=== PATIENT | female | born 1965 | race Caucasian/White ===

== ENCOUNTER → 2017-12-27 | Outpatient (CLI) | payer BC ==
[2015-02-21 06:04] VITALS: BP 147/92
[~2017-12-27] MED LIST: DICY20TA3 PO; ONDA4TAB12 PO
--- NOTE | 2017-12-27 09:53 | RAD ---
Chest, 2 views, 12/27/2017: History: Cough Comparison is made to a study from 08/28/2016. The heart size and pulmonary vascularity are normal. No pulmonary infiltrates are seen. There is an unchanged linear opacity projected over the anterior aspect of the heart compatible with a scar. No pleural fluid is evident. There are mild scattered spurs in the spine. IMPRESSION: No acute cardiopulmonary abnormality is detected.
== END | disposition home or self-care (01) ==
LOC: PMG 07:39
PROVIDERS: ATTEND Physician Assistant Medical
DX: R91.8 Other nonspecific abnormal finding of lung field (principal)
CPT/HCPCS: 71046

== ENCOUNTER → 2018-01-10 | Outpatient (CLI) | payer BC ==
[2015-02-21 06:04] VITALS: BP 147/92
--- NOTE | 2018-01-10 11:04 | RAD ---
DATE: January 10, 2018 EXAM: DIGITAL DIAGNOSTIC BILATERAL, BREAST RIGHT HISTORY: Right breast lump for 6 months. COMPARISON: October 17, 2015 This study was interpreted with the benefit of Computerized Aided Detection (CAD). DIAGNOSTIC BILATERAL MAMMOGRAPHIC FINDINGS: The breast parenchyma is heterogeneously dense. There are no dominant suspicious masses, suspicious microcalcifications or evidence of architectural distortion. A metallic BB is placed on the upper medial aspect of the right breast to kieran the palpable lump as indicated by the patient. No focal mammographic abnormality is seen here. A biopsy clip is present on the left side. RIGHT BREAST SONOGRAPHY: High-resolution sonography of the upper right breast from the 11:00 to 2:00 position was performed in the area of the palpable lump as indicated by the patient. No focal sonographic abnormality is seen. IMPRESSION: No mammographic indicators for malignancy. No focal mammographic or sonographic abnormality is seen in the area of the palpable right breast lump. Therefore, with regard to any palpable breast lump, follow-up should be clinical. BI-RADS CATEGORY: 1 NEGATIVE RECOMMENDED FOLLOW-UP: 12M 12 MONTH FOLLOW-UP PQRS compliance statement: Patient information was entered into a reminder system with a target due date January 11, 2019 for the next mammogram. Mammography is a sensitive method for finding small breast cancers, but it does not detect them all and is not a substitute for careful clinical examination. A negative mammogram does not negate a clinically suspicious finding and should not result in delay in biopsying a clinically suspicious abnormality. "Our facility is accredited by the [employer] Mammography Program." The patient's breast density may affect the ability of mammography to detect breast cancer. There are 4 categories of breast density, A, B, C and D. Breast density A means that most of the breast tissue is replaced with adipose tissue and therefore is not dense. Breast density B means that the breast tissue is mildly dense and scattered. Breast density C means that the breast tissue is heterogeneously dense. Breast density D means that the breast tissue is very dense. Breast densities especially C and D may decrease the sensitivity of mammography to detect breast cancer. Therefore, the patient may benefit from 3-D breast mammography (3D breast tomography) as a part of their screening mammogram. Insurance may or may not pay for this additional imaging. The patient's breast density based on today's mammogram is category C.
== END | disposition home or self-care (01) ==
LOC: MAMMO 09:43
PROVIDERS: ATTEND Physician Assistant Medical
DX: N63.10 Unspecified lump in the right breast, unspecified quadrant (principal); F17.200 Nicotine dependence, unspecified, uncomplicated
CPT/HCPCS: 76641; 77066

== ENCOUNTER → 2018-01-30 | Day surgery (SDC) | payer BC ==
[~2018-01-30] MED LIST changes: +ALPR1TAB6 PO; +AMLO5TAB2 PO; +ATOR10TA60 PO; +ATROPINE 0.5 MG/5 ML DISP.SYRIN. IV PRN; +CHOL500016 PO; +CYCL-331 PO; +DOCU-109 PO; +DULO60CA6 PO; +ESOM20CA PO; +FLUT9.9S NS; +IV RINGERS SOLUTION,LACTATED 1,000 ML BAG. IV ONE; +IV RINGERS SOLUTION,LACTATED 1,000 ML IV SCH; +LIDOCAINE 2% PF Vial for OR 5 ML VIAL. ONE; +LOSA100T6 PO; +MELO15TA23 PO; +NALOXONE 0.4 MG/ML VIAL. IV PRN; +ONDANSETRON PF 4 MG/2 ML VIAL. IV PRN; +POTA10TA5 PO; +PROPOFOL 40 ML IV ONE; +QUET50TA5 PO; +TRAM50TA PO
[2018-01-30 14:22] VITALS: BP 119/87
== END | disposition home or self-care (01) ==
LOC: SURG 11:49
PROVIDERS: ATTEND Internal Medicine Gastroenterology
DX: Z09 Encounter for follow-up examination after completed treatment for conditions other than malignant neoplasm (principal); Z86.010 Personal history of colon polyps; K63.5 Polyp of colon; K62.1 Rectal polyp; K21.9 Gastro-esophageal reflux disease without esophagitis; I10 Essential (primary) hypertension; J44.9 Chronic obstructive pulmonary disease, unspecified; F32.9 Major depressive disorder, single episode, unspecified; F41.9 Anxiety disorder, unspecified; M79.7 Fibromyalgia; Z98.890 Other specified postprocedural states; Z88.0 Allergy status to penicillin; Z88.8 Allergy status to other drugs, medicaments and biological substances; Z88.1 Allergy status to other antibiotic agents; Z79.899 Other long term (current) drug therapy
CPT/HCPCS: 43239; 45380; 45385; J2704; J3010; J7120; J2001

== ENCOUNTER → 2018-07-28 | Outpatient (CLI) | payer BC ==
[2018-01-30 14:22] VITALS: BP 119/87
[~2018-07-28] MED LIST changes: -AMLO5TAB2 PO; +AMLO5TAB7 PO; -ATROPINE 0.5 MG/5 ML DISP.SYRIN. IV PRN; -IV RINGERS SOLUTION,LACTATED 1,000 ML BAG. IV ONE; -IV RINGERS SOLUTION,LACTATED 1,000 ML IV SCH; -LIDOCAINE 2% PF Vial for OR 5 ML VIAL. ONE; -LOSA100T6 PO; +LOSA100T7 PO; -NALOXONE 0.4 MG/ML VIAL. IV PRN; -ONDANSETRON PF 4 MG/2 ML VIAL. IV PRN; -PROPOFOL 40 ML IV ONE
--- NOTE | 2018-07-28 08:39 | RAD ---
Chest, 2 views, 07/28/2018: HISTORY: Cough Comparison is made to a study from 12/27/2017. The heart size and pulmonary vascularity are normal. A linear opacity projected over the right middle lobe is unchanged and is compatible scarring. No pulmonary consolidation is seen. There is no evidence of pleural fluid. Mild spurring is present in the spine. IMPRESSION: No acute cardiopulmonary abnormality is detected. Electronically signed by: Fortunato Sauceda MD (07/28/2018 8:35 AM) [facility]
== END | disposition home or self-care (01) ==
LOC: DXRAD 07:57
PROVIDERS: ATTEND Physician Assistant Medical
DX: R05 Cough (principal); R91.8 Other nonspecific abnormal finding of lung field; I10 Essential (primary) hypertension; E78.00 Pure hypercholesterolemia, unspecified; J44.9 Chronic obstructive pulmonary disease, unspecified; K21.9 Gastro-esophageal reflux disease without esophagitis; Z86.010 Personal history of colon polyps; Z88.0 Allergy status to penicillin; Z88.1 Allergy status to other antibiotic agents; Z88.8 Allergy status to other drugs, medicaments and biological substances
CPT/HCPCS: 71046

== ENCOUNTER → 2019-08-28 | Outpatient (CLI) | payer BC ==
[2018-01-30 14:22] VITALS: BP 119/87
[~2019-08-28] MED LIST changes: +AMLO5TAB10 PO; -AMLO5TAB7 PO; +LOSA100T14 PO; -LOSA100T7 PO
--- NOTE | 2019-08-28 15:00 | RAD ---
EXAM: CHEST 2 VIEWS. HISTORY: Shortness of breath, cough. COMPARISON: 07/28/2018. FINDINGS: Frontal and lateral views of the chest are obtained. Hyperinflation suggests with chronic obstructive pulmonary disease. There are no confluent infiltrates. There is no pneumothorax or pleural effusion. The heart is not enlarged. There are atherosclerotic calcifications of the aorta. IMPRESSION: 1. Correlate for chronic obstructive pulmonary disease. No confluent infiltrates. Electronically signed by: Ab Sparrow MD (08/28/2019 2:57 PM) [facility] [place]
== END | disposition home or self-care (01) ==
LOC: PMG 08:18
PROVIDERS: ATTEND Physician Assistant Medical
DX: I70.0 Atherosclerosis of aorta (principal)
CPT/HCPCS: 71046

== ENCOUNTER → 2019-09-07 | Outpatient (CLI) | payer BC ==
[2018-01-30 14:22] VITALS: BP 119/87
--- NOTE | 2019-09-07 15:52 | RAD ---
EXAM: Chest, 2 views. HISTORY: Cough. COMPARISON: 08/28/2019 FINDINGS: 2 views of the chest are obtained. There is no infiltrate, pleural effusion or pneumothorax. The heart is normal in size. There is hyperinflation due to inspiratory effort or emphysema. There is linear scarring or atelectasis within the right middle lobe. IMPRESSION: No acute pulmonary finding. Electronically signed by: Candy Cano MD (09/07/2019 3:49 PM) [place] [id number]
== END | disposition home or self-care (01) ==
LOC: DXRAD 15:12
PROVIDERS: ATTEND Registered Nurse
DX: R79.81 Abnormal blood-gas level (principal); R05 Cough
CPT/HCPCS: 71046

== ENCOUNTER → 2019-09-21 | Outpatient (CLI) | payer BC ==
[2018-01-30 14:22] VITALS: BP 119/87
--- NOTE | 2019-09-21 14:34 | RAD ---
EXAM: Left ankle, 2 views. HISTORY: Pain. COMPARISON: None. FINDINGS: 2 views of the left ankle are obtained. There is no fracture, dislocation or subluxation. No osteochondral lesion is seen. IMPRESSION: No acute osseous finding. Electronically signed by: Candy Cano MD (09/21/2019 2:31 PM) [facility]
== END | disposition home or self-care (01) ==
LOC: PMG 10:50
PROVIDERS: ATTEND Registered Nurse
DX: M25.572 Pain in left ankle and joints of left foot (principal)
CPT/HCPCS: 73600

== ENCOUNTER 2019-10-19 15:44 | Inpatient (IN) | payer BC ==
[~2019-10-19] VITALS: Ht 160 cm; Wt 65.9 kg
[2019-10-19 16:10] VITALS: BP 116/64
[2019-10-19] MEDS ORDERED: ACETAMINOPHEN 325 MG TABLET PO PRN (16:15)
[2019-10-19] MEDS ORDERED: ONDANSETRON PF 4 MG/2 ML VIAL. IV PRN (16:15)
[2019-10-19 16:24] LABS: BASO % 0 % (0-3); EOS # 0.1 x10^3/uL (0.0-0.7); EOS % 1 % (0-3); HEMATOCRIT 35.8 % (36.0-47.0); LYMPH # 1.4 x10^3/uL (1.0-4.8); LYMPH % 12 % (24-48); MEAN CORPUSCULAR HEMOGLOBIN 31 pg (25-35); MEAN CORPUSCULAR HGB CONC 34 g/dL (31-37); MEAN CORPUSCULAR VOLUME 94 fL (79-100); MONO # 1.3 x10^3/uL (0.0-1.1); MONO % 11 % (0-9); NEUT # 9.2 x10^3uL (1.8-7.7); NEUT % 76 % (31-73); PLATELET COUNT 216 x10^3/uL (140-400); RED BLOOD COUNT 3.83 x10^6/uL (3.50-5.40); RED CELL DISTRIBUTION WIDTH 13.4 % (11.5-14.5); WHITE BLOOD COUNT 12.1 x10^3/uL (4.0-11.0)
[2019-10-19] MEDS: IPRATRPIUM/ALBUTEROL 0.5/2.5MG 3 ML NEBU. NEB SCH ×2 (16:26→20:49)
[2019-10-19] MEDS: IV NORMAL SALINE 1,000ML 1,000 ML IV SCH (16:28)
[2019-10-19] MEDS: methylPREDNISolone SOD SUCC PF 125 MG/2 ML VIAL. IV SCH ×2 (16:28→21:11)
[2019-10-19] MEDS ORDERED: LURA40TA PO (16:41)
[2019-10-19] MEDS ORDERED: DEXT10TA23 PO (16:41)
[2019-10-19] MEDS ORDERED: ONDA4TAB7 PO (16:41)
[2019-10-19] MEDS ORDERED: VALS160T3 PO (16:41)
[2019-10-19 16:43] LABS: ALBUMIN 2.9 g/dL (3.4-5.0); ALBUMIN/GLOBULIN RATIO 0.6 (1.0-1.7); CALCIUM 8.5 mg/dL (8.5-10.1); CREATININE 0.7 mg/dL (0.6-1.0); GFR 87.2; POTASSIUM 3.3 mmol/L (3.5-5.1); TOTAL BILIRUBIN 0.2 mg/dL (0.2-1.0); TOTAL PROTEIN 7.4 g/dL (6.4-8.2)
[2019-10-19] MEDS ORDERED: POTASSIUM CHLORIDE 20 MEQ TABLET.ER. PO ONE (17:00)
[2019-10-19] MEDS ORDERED: HYDROcodone/CHLORPHEN POLIS 5 ML SUS.ER.12H PO PRN (17:00)
[2019-10-19] MEDS: NICOTINE 21MG PATCH. TD SCH (17:05)
[2019-10-19 17:43] VITALS: BP 96/51
[2019-10-19] MEDS ORDERED: IOHEXOL 350 MG/ML 100 ML VIAL. IV ONE (17:45)
[2019-10-19] MEDS ORDERED: diphenhydrAMINE 50 MG/ML VIAL IVP PRN (18:30)
[2019-10-19 19:00] VITALS: BP 92/55
[2019-10-19] MEDS ORDERED: AZITHROMYCIN 500 MG in IV NORMAL SALINE 250ML 250 ML IV SCH (19:00)
[2019-10-19] MEDS ORDERED: ONDANSETRON ODT 4 MG TAB.RAPDIS PO PRN (19:30)
--- NOTE | 2019-10-19 19:52 | RAD ---
Exam: CT of chest with contrast INDICATION: Shortness of breath TECHNIQUE: Sequential axial images through the chest obtained following the administration of 75 mL of Omni 350 IV contrast. Sagittal and coronal reformatted images were reconstructed from the axial data and reviewed. 3-D reformatted images were reconstructed from the axial data and reviewed. Comparisons: None FINDINGS: Visualized portions of the thyroid are unremarkable. No enlarged mediastinal lymph nodes are identified. Heart size is normal. Trace pericardial fluid. Thoracic aorta has a normal course and caliber. Pulmonary artery is not enlarged. No pulmonary embolus identified within the main, lobar or segmental pulmonary arteries. Mild bronchial wall thickening noted predominantly within the lower lobes. Centrilobular emphysematous change noted at the upper lungs. Patchy airspace disease noted within the right upper lobe. 4 mm nodule left lower lobe series 3 image 55. No pleural effusion or thickening. Visualized upper abdomen is unremarkable. No suspicious osseous lesions or acute fractures. IMPRESSION: 1. No pulmonary embolus identified within the main, lobar or segmental pulmonary arteries. 2. Few patchy areas of groundglass opacity noted within the right upper lobe, may be infectious or inflammatory in etiology. 3. A 4 mm nodule in the left lower lobe. In a low-risk patient no further follow-up imaging is recommended. In a high-risk patient and optional one-year follow-up CT can BE performed. Exposure: One or more of the following in the visualized dose reduction techniques were utilized for this examination: 1. Automated exposure control 2. Adjustment of the MA and/or KV according to patient size 3. Use of iterative of reconstructive technique Electronically signed by: Patrizia Blancas MD (10/19/2019 7:49 PM) [facility] [id number]
--- NOTE | 2019-10-19 19:57 | RAD ---
Exam: CT maxillofacial without contrast INDICATION: Chronic congestion, pain TECHNIQUE: Sequential axial images through the maxillofacial obtained without IV contrast. Sagittal and coronal reformatted images were reconstructed from the axial data and reviewed. Comparisons: None FINDINGS: Visualized intracranial structures are unremarkable. Globes and intraorbital contents are normal. No acute or healed fractures. Near Complete opacification of the right maxillary sinus. No reactive osteogenesis identified. Mild mucosal thickening of the left maxillary sinus. Dental amalgam artifact mildly limits the evaluation. The patient is partially edentulous. IMPRESSION: 1. Complete opacification of the right maxillary sinus. Mild mucosal thickening of the left maxillary sinus. 2. No acute fractures seen. Exposure: One or more of the following in the visualized dose reduction techniques were utilized for this examination: 1. Automated exposure control 2. Adjustment of the MA and/or KV according to patient size 3. Use of iterative of reconstructive technique Electronically signed by: Patrizia Blancas MD (10/19/2019 7:53 PM) [facility]
[2019-10-19 20:47] LABS: BACTERIA,URINE 0 /HPF (0-FEW); BILIRUBIN,URINE NEG (NEG); CLARITY,URINE CLEAR; COLOR,URINE COLORLESS; GLUCOSE,URINE NEG (NEG); NITRITE,URINE NEG (NEG); RBC,URINE OCC /HPF (0-2); SQUAMOUS EPITHELIAL CELL,UR OCC /LPF; UROBILINOGEN,URINE 0.2 mg/dL (0.2 mg/dL); WBC,URINE OCC /HPF (0-4)
[2019-10-19] MEDS: LURASIDONE 40 MG TABLET. PO SCH (21:00)
[2019-10-19] MEDS: ALPRAZolam 0.5 MG TABLET PO SCH (21:11)
[2019-10-19] MEDS: LACTOBACILLUS RHAMNOSUS GG 1 CAPSULE. PO SCH (21:11)
[2019-10-19] MEDS: CYCLOBENZAPRINE 10 MG TABLET. PO SCH (21:12)
[2019-10-19] MEDS: PANTOPRAZOLE 40 MG TABLET. PO SCH (21:12)
[2019-10-19] MEDS: MELOXICAM 15 MG TABLET. PO SCH (21:12)
[2019-10-19] MEDS: BENZONATATE 100 MG CAPSULE. PO SCH (21:12)
[2019-10-19] MEDS: ATORVASTATIN CALCIUM 10 MG TABLET. PO SCH (21:12)
[2019-10-19 23:00] VITALS: BP 95/60
[2019-10-20] MEDS: IPRATRPIUM/ALBUTEROL 0.5/2.5MG 3 ML NEBU. NEB SCH ×4 (05:17→20:41)
[2019-10-20] MEDS: methylPREDNISolone SOD SUCC PF 125 MG/2 ML VIAL. IV SCH ×3 (05:30→21:11)
[2019-10-20] MEDS: IV NORMAL SALINE 1,000ML 1,000 ML IV SCH ×2 (05:30→17:01)
[2019-10-20 07:42] VITALS: BP 99/63
[2019-10-20] MEDS ORDERED: PNEUMOC CONJ VACC 23-VALENT 0.5 ML VIAL. VAX IM ONE (08:00)
[2019-10-20] MEDS: POTASSIUM CHLORIDE 10 MEQ TABLET.ER. PO SCH (08:06)
[2019-10-20] MEDS: LACTOBACILLUS RHAMNOSUS GG 1 CAPSULE. PO SCH ×2 (08:07→21:11)
[2019-10-20] MEDS: DULoxetine HCL 60 MG CAPSULE.DR PO SCH (08:07)
[2019-10-20] MEDS: BENZONATATE 100 MG CAPSULE. PO SCH ×3 (08:07→21:10)
[2019-10-20] MEDS: PANTOPRAZOLE 40 MG TABLET. PO SCH ×2 (08:07→21:11)
[2019-10-20] MEDS: NICOTINE 21MG PATCH. TD SCH (08:08)
[2019-10-20] MEDS: FLUTICASONE 50MCG/NASAL SPRAY 16GM BOTTLE. NS SCH (08:09)
[2019-10-20] MEDS: amLODIPine BESYLATE 10 MG TABLET PO SCH (09:00)
[2019-10-20] MEDS ORDERED: NON FORMULARY ITEM (Valsartan (Diovan) 1 TAB) PO SCH (09:00)
[2019-10-20] MEDS: LOSARTAN 50 MG TABLET. PO SCH (09:00)
[2019-10-20 11:00] VITALS: BP 106/65
[2019-10-20] MEDS ORDERED: HYDROcodone/APAP 5/325MG 1 TAB TABLET PO PRN (12:00)
--- NOTE | 2019-10-20 12:02 | HP ---
ADMIT DATE: 10/19/2019 HISTORY OF PRESENT ILLNESS: The patient is a 53-year-old female patient who was admitted directly from her primary care physician on account of shortness of breath, cough, headache, fever for almost 8 days. When she blows her nose she has dark yellow discharge. She denied any chest pain, but did complain of abdominal back pain due to recurrent bouts of cough. She has been consistently sick throughout the month of August and September and was treated with 3 courses of antibiotics including doxycycline, clindamycin and Z-RAZ and she did improve for about a week and then all the symptoms started again; and therefore, she was admitted directly for further evaluation and treatment. PAST MEDICAL HISTORY: Significant for COPD, hypertension, hyperlipidemia, history of cerebrovascular accident about 10 years ago. Did also has a sleep study, would confirm that she has obstructive sleep apnea; however, she has never had any CPAP or BiPAP machine at home. PAST SURGICAL HISTORY: Significant for , tonsillectomy, bronchoscopy, esophagogastroduodenoscopy and colonoscopy. ALLERGIES: SHE IS ALLERGIC TO PENICILLIN, CEPHALEXIN, CIPROFLOXACIN WELL STATIN. MEDICATIONS: She is currently on following medications: She is on cyclobenzaprine 10 mg at bedtime, atorvastatin calcium 10 mg at bedtime, amlodipine 10 mg daily, valsartan 160 mg daily, meloxicam 15 mg at bedtime, duloxetine 60 mg once a day, Latuda 40 mg at bedtime. She is on Adderall 10 mg daily, alprazolam 1 mg at bedtime. She is on potassium chloride 10 mEq once a day. She is on Flonase 2 sprays to each nostril once a day, ondansetron 4 mg every 6 hours, and Nexium capsule 20 mg twice a day. FAMILY HISTORY: She has one full brother, 3 half-sisters and one half-brother. Her father is still alive at the age of 78 with Alzheimer's disease. Her mother at the age of 64 because of heart attack. SOCIAL HISTORY: She is , has one daughter. She smokes a pack a day, does not drink alcohol or use any recreational drugs. She works at [employer]. REVIEW OF SYSTEMS: The patient denied any blurring of vision, cataract, glaucoma or macular degeneration. Denied any earache, tinnitus or sensorineural deafness. Denied any nosebleeds, but did complain of stuffy nose, postnasal drip. Denied any sore throat, sore tongue, toothache, hoarseness of voice or difficulty swallowing. Denied any nausea, vomiting or diarrhea, but did complain of constipation. Denied any hematemesis, melena or hematochezia. Denied any dysuria, frequency or hematuria. Denied any chest pain. Did complain of shortness of breath, cough with initially dark yellow and subsequently becomes dry. PHYSICAL EXAMINATION: GENERAL: On arrival to the hospital yesterday, she was febrile with temperature of 100.8. VITAL SIGNS: Her heart rate was 94, blood pressure was 116/64, respiratory rate was 16, and oxygen saturation was 98% on 2 liters of oxygen. HEAD, EYES, EARS, NOSE AND THROAT: Showed normocephalic, atraumatic. NECK: Supple. HEART: Showed normal first and second heart sounds. No gallop or murmur. CHEST: Showed central trachea, equally reduced expansion, reduced air entry, vesicular sounds with expiratory wheezes. I could not appreciate any crepitation. ABDOMEN: Distended, soft, nontender. NEUROLOGIC: She is awake, alert, responding appropriately. All cranial nerves intact. EXTREMITIES: She moves extremities without difficulty. She ambulates without assistance or assistive devices. LABORATORY DATA: On admission showed a white cell count 12,100, hemoglobin 12, hematocrit 36, MCV 94 and platelet count of 216,000 with normal manual differential. Her chemistry showed a serum sodium 137, potassium 3.3, chloride 99, bicarbonate 27, anion gap of 11, BUN 7, creatinine 0.7, estimated GFR was 87 mL per minute. Her glucose was 98, lactic acid is only 1, calcium was 8.5, magnesium 2. Total bilirubin, AST, ALT were normal. Alkaline phosphatase slightly elevated. Her total protein was 7.4, albumin 2.9. Her D-dimer was slightly elevated at 2.15. Urinalysis was essentially unremarkable. She did have a CT maxillofacial without contrast, which showed that she has complete opacification of the right maxillary sinus. Mild mucosal thickening of the left maxillary sinus. No acute fracture seen. CT angio of the chest showed that there is no pulmonary embolus identified within the main lobar or segmental pulmonary arteries, few patchy areas of ground glass opacity noted within the right upper lobe, may be infectious, inflammatory in etiology. A 4 mm nodule in the left lower lobe. In a low risk patient, no further followup imaging is recommended. In a high risk patient, an optional 1-year followup CT can be performed. ASSESSMENT AND PLAN: In summary, this is a 53-year-old female patient who was admitted on account of chronic obstructive pulmonary disease exacerbation. We will continue with IV antibiotic in the form of levofloxacin as well as azithromycin and steroids together with nebulized treatment as well as Mucinex and we will follow her closely and decide on further management accordingly. SOMMER GUO MD DR: SMITH/benjie JOB#: [id number] / [id number]
[2019-10-20] MEDS: MEROPENEM 1 GM in IV NORMAL SALINE 100ML 100 ML IV SCH ×2 (13:21→22:25)
[2019-10-20 15:00] VITALS: BP 112/68
[2019-10-20 16:19] VITALS: BP 111/71
--- NOTE | 2019-10-20 20:12 | PN ---
DATE: 10/20/2019 SUBJECTIVE: The patient is resting slightly propped up in bed, in no apparent respiratory distress; however, she continued to have cough, which is mostly dry. PHYSICAL EXAMINATION: GENERAL: When I examined her, she looked slightly tachypneic, but there is no pallor, jaundice, cyanosis or thyromegaly. No jugular venous distention. No limb edema. VITAL SIGNS: Her heart rate was 88, blood pressure was 92/55, temperature was 97.7, respiratory rate 20 and oxygen saturation was 96% on 2 liters of oxygen. HEAD, EYES, EARS, NOSE AND THROAT: Showed normocephalic, atraumatic. NECK: Supple. HEART: Showed normal first and second heart sounds with no gallop or murmur. CHEST: Shows central trachea, equally reduced expansion, reduced air entry with vesicular breath sounds and markedly prolonged expiratory phase with wheezing. I could not appreciate any crepitation. ABDOMEN: Distended, soft, nontender. NEUROLOGICAL: She was awake, alert, responding appropriately. All cranial nerves intact. She moves extremities without difficulty. LABORATORY DATA: She has no lab work from this morning. PLAN: My plan is to continue with nebulized albuterol and Atrovent. Continue with Solu-Medrol, IV antibiotic. I probably will discontinue Zithromax and add meropenem to expand her coverage. SOMMER GUO MD DR: SMITH/benjie JOB#: [id number] / [id number]
[2019-10-20 20:53] VITALS: BP 103/67
[2019-10-20] MEDS: CYCLOBENZAPRINE 10 MG TABLET. PO SCH (21:11)
[2019-10-20] MEDS: LURASIDONE 40 MG TABLET. PO SCH (21:11)
[2019-10-20] MEDS: ALPRAZolam 0.5 MG TABLET PO SCH (21:11)
[2019-10-20] MEDS: ATORVASTATIN CALCIUM 10 MG TABLET. PO SCH (21:11)
[2019-10-20] MEDS: MELOXICAM 15 MG TABLET. PO SCH (21:11)
[2019-10-20 23:18] VITALS: BP 120/79
[2019-10-21] MEDS: IV NORMAL SALINE 1,000ML 1,000 ML IV SCH ×3 (03:03→18:11)
[2019-10-21] MEDS: MEROPENEM 1 GM in IV NORMAL SALINE 100ML 100 ML IV SCH ×3 (04:33→22:19)
[2019-10-21 05:48] VITALS: BP 137/85
[2019-10-21] MEDS: methylPREDNISolone SOD SUCC PF 125 MG/2 ML VIAL. IV SCH ×3 (05:53→20:54)
[2019-10-21 06:42] LABS: HEMATOCRIT 33.3 % (36.0-47.0); RED BLOOD COUNT 3.56 x10^6/uL (3.50-5.40); RED CELL DISTRIBUTION WIDTH 13.5 % (11.5-14.5); WHITE BLOOD COUNT 16.5 x10^3/uL (4.0-11.0)
[2019-10-21 06:56] LABS: ALBUMIN 2.3 g/dL (3.4-5.0); ALBUMIN/GLOBULIN RATIO 0.6 (1.0-1.7); CALCIUM 8.3 mg/dL (8.5-10.1); CREATININE 0.7 mg/dL (0.6-1.0); GFR 87.2; POTASSIUM 4.6 mmol/L (3.5-5.1); TOTAL BILIRUBIN 0.1 mg/dL (0.2-1.0); TOTAL PROTEIN 6.2 g/dL (6.4-8.2)
[2019-10-21] MEDS ORDERED: FLU VAX QS 2019-20 (36MOS+)/PF 0.5 ML SYRINGE. VAX IM ONE (08:00)
[2019-10-21] MEDS: LACTOBACILLUS RHAMNOSUS GG 1 CAPSULE. PO SCH ×2 (08:28→20:55)
[2019-10-21] MEDS: PANTOPRAZOLE 40 MG TABLET. PO SCH ×2 (08:28→20:56)
[2019-10-21] MEDS: DULoxetine HCL 60 MG CAPSULE.DR PO SCH (08:28)
[2019-10-21] MEDS: amLODIPine BESYLATE 10 MG TABLET PO SCH (08:29)
[2019-10-21] MEDS: BENZONATATE 100 MG CAPSULE. PO SCH ×3 (08:29→20:55)
[2019-10-21] MEDS: LOSARTAN 50 MG TABLET. PO SCH (08:29)
[2019-10-21] MEDS: POTASSIUM CHLORIDE 10 MEQ TABLET.ER. PO SCH (08:30)
[2019-10-21] MEDS: NICOTINE 21MG PATCH. TD SCH (08:30)
[2019-10-21] MEDS: IPRATRPIUM/ALBUTEROL 0.5/2.5MG 3 ML NEBU. NEB SCH ×4 (09:17→21:16)
[2019-10-21] MEDS: FLUTICASONE 50MCG/NASAL SPRAY 16GM BOTTLE. NS SCH (09:31)
[2019-10-21 11:00] VITALS: BP 132/79
[2019-10-21 15:48] VITALS: BP 151/82
[2019-10-21 15:52] VITALS: BP 135/83
[2019-10-21 18:32] LABS: BGAS PH 7.34 (7.35-7.45); DELTA BASE BGAS -2.2 mmol/L (0-3)
[2019-10-21 20:00] VITALS: BP 142/81
[2019-10-21] MEDS: CYCLOBENZAPRINE 10 MG TABLET. PO SCH (20:55)
[2019-10-21] MEDS: ALPRAZolam 0.5 MG TABLET PO SCH (20:56)
[2019-10-21] MEDS: MONTELUKAST 10 MG TABLET. PO SCH (20:56)
[2019-10-21] MEDS: ATORVASTATIN CALCIUM 10 MG TABLET. PO SCH (20:56)
[2019-10-21] MEDS: LURASIDONE 40 MG TABLET. PO SCH (22:19)
[2019-10-21 22:29] VITALS: BP 144/79
--- NOTE | 2019-10-22 00:56 | PN ---
DATE: 10/21/2019 SUBJECTIVE: The patient is resting slightly propped up in bed, in no apparent distress. She continues to have cough, which is mostly dry, continues to have chest tightness and diffuse wheezing, although she seemed to be more comfortable than yesterday. PHYSICAL EXAMINATION: GENERAL: When I examined her, she was somewhat pale. No jaundice, cyanosis, or thyromegaly. No jugular venous distention. No limb edema. VITAL SIGNS: Her heart rate was 91, blood pressure was 132/79, temperature was 97.7, respiratory rate 20, and oxygen saturation was 95% on 2 liters of oxygen. HEAD, EYES, EARS, NOSE, AND THROAT: Showed normocephalic and atraumatic. NECK: Supple. HEART: Showed normal first and second heart sounds with no gallop, rub, or murmur. CHEST: Shows central trachea, equally reduced expansion and reduced air entry, vesicular sounds with diffuse bilateral rhonchi and audible wheezes. No crepitation. ABDOMEN: Distended, soft, and nontender. NEUROLOGIC: She was awake, alert, and responding appropriately. All cranial nerves are intact. She moves extremities without difficulty. She ambulates without assistance or assistive devices. Her intake over the last 24 hours was 3930. No output was recorded. LABORATORY DATA: Her white cell count was 16,500, hemoglobin 11, hematocrit 33, MCV 94, and platelet count 235,000. Her chemistry showed a serum sodium of 138, potassium 4.6, chloride 106, bicarbonate 26, anion gap of 6, BUN 12, and creatinine 0.7. Estimated GFR was 87 mL per minute. Her glucose was 110 and calcium was 8.3. Total bilirubin, AST, ALT are normal. Alkaline phosphatase is slightly elevated. Total protein is 6.2 and albumin 2.3. Her D-dimer was high at 2.15. She did have a CT angio of the chest and showed no evidence of pulmonary embolism identified within the main lobar. PLAN: To continue with IV antibiotic in the form of meropenem and Levaquin. Continue with steroids at 125 mg every 8 hours. Continue with nebulized albuterol and Atrovent. Continue with benzonatate and also Mucinex and Singulair. We will check her blood gases and if she is retaining carbon dioxide, I will transfer her to [facility]. SOMMER GUO MD DR: Mi JOB#: [id number] / [id number]
[2019-10-22] MEDS: IV NORMAL SALINE 1,000ML 1,000 ML IV SCH ×2 (02:30→13:11)
[2019-10-22] MEDS: IPRATRPIUM/ALBUTEROL 0.5/2.5MG 3 ML NEBU. NEB SCH ×4 (05:10→21:12)
[2019-10-22 05:25] VITALS: BP 134/84
[2019-10-22] MEDS: methylPREDNISolone SOD SUCC PF 125 MG/2 ML VIAL. IV SCH ×3 (05:33→21:06)
[2019-10-22] MEDS: MEROPENEM 1 GM in IV NORMAL SALINE 100ML 100 ML IV SCH ×3 (05:33→21:05)
[2019-10-22 06:27] LABS: HEMATOCRIT 33.7 % (36.0-47.0); RED BLOOD COUNT 3.59 x10^6/uL (3.50-5.40); RED CELL DISTRIBUTION WIDTH 13.4 % (11.5-14.5); WHITE BLOOD COUNT 18.7 x10^3/uL (4.0-11.0)
[2019-10-22 06:52] LABS: ALBUMIN 2.3 g/dL (3.4-5.0); ALBUMIN/GLOBULIN RATIO 0.6 (1.0-1.7); CALCIUM 8.2 mg/dL (8.5-10.1); CREATININE 0.5 mg/dL (0.6-1.0); GFR 128.6; POTASSIUM 4.5 mmol/L (3.5-5.1); TOTAL BILIRUBIN 0.2 mg/dL (0.2-1.0)
[2019-10-22] MEDS: POTASSIUM CHLORIDE 10 MEQ TABLET.ER. PO SCH (08:10)
[2019-10-22] MEDS: amLODIPine BESYLATE 10 MG TABLET PO SCH (08:10)
[2019-10-22] MEDS: LACTOBACILLUS RHAMNOSUS GG 1 CAPSULE. PO SCH ×2 (08:10→21:06)
[2019-10-22] MEDS: PANTOPRAZOLE 40 MG TABLET. PO SCH ×2 (08:11→21:06)
[2019-10-22] MEDS: LOSARTAN 50 MG TABLET. PO SCH (08:11)
[2019-10-22] MEDS: BENZONATATE 100 MG CAPSULE. PO SCH ×3 (08:11→21:06)
[2019-10-22] MEDS: DULoxetine HCL 60 MG CAPSULE.DR PO SCH (08:11)
[2019-10-22] MEDS: FLUTICASONE 50MCG/NASAL SPRAY 16GM BOTTLE. NS SCH (08:12)
[2019-10-22] MEDS: NICOTINE 21MG PATCH. TD SCH (08:15)
[2019-10-22 11:21] VITALS: BP 157/89
[2019-10-22 19:21] VITALS: BP 141/86
--- NOTE | 2019-10-22 20:33 | PN ---
DATE: SUBJECTIVE: The patient is sitting slightly propped up in bed, no apparent distress. She continued to have cough with scanty sputum that is actually getting change color to white. Denied any chest pain. Has been up and about and feeling generally slightly better. PHYSICAL EXAMINATION: GENERAL: When I examined her, she looked well and was clearly in no apparent respiratory distress, pale, but no jaundice, cyanosis or thyromegaly. No jugular venous distention. No lower limb edema. VITAL SIGNS: Her heart rate was 96, blood pressure 157/89, temperature was 97.8, respiratory rate 22, and oxygen saturation was 90% on 2 liters of oxygen. HEAD, EYES, EARS, NOSE AND THROAT: Showed normocephalic, atraumatic. NECK: Supple. HEART: Showed normal first and second heart sounds. No gallop or murmur. CHEST: Shows central trachea, equal reduced expansion, reduced air entry, vesicular breath sounds, continued to have scattered rhonchi, although much less than before. I could not appreciate any crepitation. ABDOMEN: Slightly distended, soft, nontender. NEUROLOGIC: She was grossly intact. Her intake was 3900, no output was recorded. LABORATORY DATA: Her lab work as of this morning showed a white cell count of 18,700, hemoglobin 11, hematocrit 33, MCV 94 and platelet count 248,000. Her D-dimer was . Her chemistry showed a serum sodium 140, potassium 4.5, chloride 107, bicarbonate 28, anion gap of 5, BUN 14, creatinine 0.5, estimated GFR was 128 mL per minute. Her glucose 103, calcium was 8.2. Total bilirubin, AST, ALT, alkaline phosphatase were normal. Total protein 6, albumin was 2.3. She did have arterial blood gas done yesterday showed a pH of 7.34, pCO2 of 44, pO2 of 67, bicarbonate 24 and oxygen saturation was 92% on FiO2 of 28%. Urinalysis unremarkable. Her CT angio of the chest was negative for pulmonary emboli; however, she has patchy areas of ground glass opacities noted within the right upper lobe. She has also a 4 mm nodule in the left lower lobe. ASSESSMENT: 1. Community-acquired pneumonia. 2. Chronic obstructive pulmonary disease exacerbation. 3. Acute hypoxic respiratory failure. PLAN: My plan is to continue with IV antibiotic in the form of meropenem and levofloxacin. Continue with montelukast. Continue with Solu-Medrol. Continue with Flonase as well as albuterol and Atrovent. SOMMER GUO MD DR: SMITH/benjie JOB#: [id number] / [id number]
[2019-10-22] MEDS: CYCLOBENZAPRINE 10 MG TABLET. PO SCH (21:06)
[2019-10-22] MEDS: MONTELUKAST 10 MG TABLET. PO SCH (21:06)
[2019-10-22] MEDS: ALPRAZolam 0.5 MG TABLET PO SCH (21:06)
[2019-10-22] MEDS: ATORVASTATIN CALCIUM 10 MG TABLET. PO SCH (21:06)
[2019-10-22] MEDS: LURASIDONE 40 MG TABLET. PO SCH (21:08)
[2019-10-22 22:18] VITALS: BP 145/80
[2019-10-23] MEDS: IV NORMAL SALINE 1,000ML 1,000 ML IV SCH (00:11)
[2019-10-23] MEDS: methylPREDNISolone SOD SUCC PF 125 MG/2 ML VIAL. IV SCH ×2 (05:29→14:22)
[2019-10-23] MEDS: MEROPENEM 1 GM in IV NORMAL SALINE 100ML 100 ML IV SCH ×2 (05:29→13:31)
[2019-10-23] MEDS: IPRATRPIUM/ALBUTEROL 0.5/2.5MG 3 ML NEBU. NEB SCH ×3 (05:58→15:42)
[2019-10-23 05:59] VITALS: BP 159/96
[2019-10-23 06:55] LABS: HEMOGLOBIN 11.7 g/dL (12.0-15.5); RED BLOOD COUNT 3.82 x10^6/uL (3.50-5.40); RED CELL DISTRIBUTION WIDTH 13.4 % (11.5-14.5); WHITE BLOOD COUNT 15.7 x10^3/uL (4.0-11.0)
[2019-10-23 07:00] LABS: CALCIUM 8.3 mg/dL (8.5-10.1); CREATININE 0.6 mg/dL (0.6-1.0); GFR 104.2; POTASSIUM 4.1 mmol/L (3.5-5.1)
[2019-10-23] MEDS: DULoxetine HCL 60 MG CAPSULE.DR PO SCH (08:24)
[2019-10-23] MEDS: POTASSIUM CHLORIDE 10 MEQ TABLET.ER. PO SCH (08:24)
[2019-10-23] MEDS: LOSARTAN 50 MG TABLET. PO SCH (08:24)
[2019-10-23] MEDS: PANTOPRAZOLE 40 MG TABLET. PO SCH (08:25)
[2019-10-23] MEDS: LACTOBACILLUS RHAMNOSUS GG 1 CAPSULE. PO SCH (08:25)
[2019-10-23] MEDS: amLODIPine BESYLATE 10 MG TABLET PO SCH (08:26)
[2019-10-23] MEDS: BENZONATATE 100 MG CAPSULE. PO SCH ×2 (08:26→14:22)
[2019-10-23] MEDS: NICOTINE 21MG PATCH. TD SCH (08:27)
[2019-10-23] MEDS: FLUTICASONE 50MCG/NASAL SPRAY 16GM BOTTLE. NS SCH (08:31)
[2019-10-23 11:18] VITALS: BP 137/78
[2019-10-23 15:17] VITALS: BP 147/85
--- NOTE | 2019-10-23 21:48 | DS ---
DATE OF DISCHARGE: 10/23/2019 HOSPITAL COURSE: The patient is a 53-year-old female patient who was admitted directly from her primary care physician on account of shortness of breath, cough, headache and fever for almost 8 days. When she blows her nose, she has dark yellow discharge. She denied any chest pain, but did complain of back pain due to recurrent bouts of cough. She has been consistently sick throughout the month of August, September, and was treated with 3 courses of antibiotics including doxycycline, clindamycin and Z-Ross. She did improve for about a week and then all her symptoms started again and therefore she was admitted directly for further evaluation and treatment. She was extensively investigated. Her CT angio of the chest showed that she has no pulmonary emboli identified within the main lobar or segmental pulmonary arteries, few patchy areas of ground glass opacity noted within the right upper lobe, may be infectious, inflammatory etiology. She has a 4 mm nodule in the left lower lobe. Her CT maxillofacial showed that she has complete opacification of the right maxillary sinus. She has mild mucosal thickening of the left maxillary sinus. The patient was admitted and was started on IV antibiotic in the form of meropenem as well as levofloxacin as she is allergic to PENICILLIN, CEPHALEXIN and CIPROFLOXACIN. She was also started on Solu-Medrol at 62.5 mg IV q. 8 hourly as well as nebulized albuterol and Atrovent and the patient has been in the hospital since 10/19/2019 and her chest was tight with severe bronchospasm and that has eventually improved. PHYSICAL EXAMINATION: GENERAL: When I saw her today, she was actually resting flat in bed, in no apparent respiratory distress. She was somewhat pale, no jaundice, cyanosis or thyromegaly. No jugular venous distention. No lower limb edema. VITAL SIGNS: Her heart rate was 82, blood pressure was 147/85, temperature was 98.1, respiratory rate 22, and oxygen saturation was 96% on 2 liters of oxygen on exertion. Without oxygen, her saturation dropped down to 85%. We did a 6-minute walk and she was discharged on home oxygen. HEAD, EYES, EARS, NOSE AND THROAT: Showed normocephalic, atraumatic. NECK: Supple. HEART: Showed normal first and second heart sounds with no gallop or murmur. CHEST: Shows central trachea, equal bilateral chest expansion air entry, very few scattered rhonchi. No crepitation. ABDOMEN: Distended, soft, nontender. NEUROLOGIC: She is awake, alert, responding appropriately. All cranial nerves are intact. He moves extremities without difficulty. She ambulates without assistance or assistive devices. Her intake was 4000, no output was recorded. LABORATORY DATA: This morning showed a white cell count 15,700, hemoglobin 12, hematocrit 35, MCV 92, and platelet count 234,000. Her chemistry this morning showed a serum sodium 141, potassium 4.1, chloride 102, bicarbonate 34, anion gap of 5, BUN 10, creatinine 0.6, estimated GFR was 104 mL per minute. Her glucose 107, calcium was 8.3. Her blood gases showed a pH of 7.34, pCO2 of 44, pO2 67, bicarbonate 24, and oxygen saturation was 92% on FiO2 of 28%. Urinalysis was unremarkable and D-dimer was 2.[address] angio of the chest showed that there is no pulmonary emboli identified within the main lobar or segmental pulmonary arteries. She has few patchy areas of ground glass opacity noted within the right upper lobe, may be infectious, inflammatory in etiology. She had a 4 mm nodule in the left lower lobe. CT scan of the maxillofacial showed that she has complete opacification of the right maxillary sinus. Mild mucosal thickening of the left maxillary sinus. No acute fracture seen. DISCHARGE MEDICATIONS: The patient was discharged home to continue on alprazolam 1 mg at bedtime, amlodipine besylate 10 mg once a day, atorvastatin calcium 10 mg at bedtime, cyclobenzaprine 10 mg at bedtime, dextromethorphan/amphetamine or Adderall 10 mg daily, duloxetine or Cymbalta 60 mg daily, Nexium 20 mg twice a day, Flonase 2 sprays to each nostril daily, Latuda 40 mg at bedtime, meloxicam 15 mg at bedtime, ondansetron or Zofran 4 mg every 6 hours, potassium chloride 10 mEq daily, and valsartan or Diovan 160 mg once a day. She was also discharged on a tapering course of steroids, Levaquin 750 mg once a day for 6 more days. She was discharged also on home oxygen 2 liters at rest and 4 liters on exertion as well as nebulized albuterol sulfate and ipratropium bromide. The patient is also given a prescription for Nicoderm patch, was encouraged on multiple occasions to quit smoking. Also was advised to make an appointment to be seen by a audio engineer as she has severe COPD and chronic hypoxic respiratory failure. SOMMER GUO MD DR: SMITH/benjie JOB#: [id number] / [id number]
== END 2019-10-23 16:34 | disposition home or self-care (01) | DRG 193 ==
LOC: ICU 15:44 → 1 SOUTH 10-20 15:32
PROVIDERS: ADMIT Family Medicine; ATTEND Internal Medicine
DX: J18.9 Pneumonia, unspecified organism (principal); J96.01 Acute respiratory failure with hypoxia; J44.1 Chronic obstructive pulmonary disease with (acute) exacerbation; J44.0 Chronic obstructive pulmonary disease with (acute) lower respiratory infection; R65.10 Systemic inflammatory response syndrome (SIRS) of non-infectious origin without acute organ dysfunction; E78.5 Hyperlipidemia, unspecified; G47.33 Obstructive sleep apnea (adult) (pediatric); F17.210 Nicotine dependence, cigarettes, uncomplicated; I10 Essential (primary) hypertension; Z86.73 Personal history of transient ischemic attack (TIA), and cerebral infarction without residual deficits; Z88.0 Allergy status to penicillin; Z82.49 Family history of ischemic heart disease and other diseases of the circulatory system; Z82.0 Family history of epilepsy and other diseases of the nervous system
CPT/HCPCS: 36415; 70486; 71275; 80048; 80053; 81001; 82803; 83605; 83735; 85025; 85027; 85379; 87040; 90471; 90686; 94640; J0456; J1956; J2185; J2930; J7050; J7620; Q9967; J7030

== ENCOUNTER → 2019-11-03 | Outpatient (CLI) | payer BC ==
[2019-10-23 15:17] VITALS: BP 147/85
[~2019-11-03] MED LIST changes: +DEXT10TA23 PO; +LURA40TA PO; +ONDA4TAB7 PO; +VALS160T3 PO
--- NOTE | 2019-11-03 16:01 | RAD ---
EXAM: Chest, 2 views. HISTORY: Cough. Pneumonia. COMPARISON: 10/19/2019 FINDINGS: 2 views of the chest are obtained. There is suspected linear atelectasis within the right middle lobe. There is no consolidation, pleural effusion or pneumothorax. The heart is normal in size. IMPRESSION: No acute pulmonary finding. Electronically signed by: Candy Cano MD (11/03/2019 3:58 PM) [id number]
== END | disposition home or self-care (01) ==
LOC: DXRAD 15:29
PROVIDERS: ATTEND Registered Nurse
DX: J98.11 Atelectasis (principal); J18.9 Pneumonia, unspecified organism
CPT/HCPCS: 71046

== ENCOUNTER 2020-11-08 03:59 | Emergency (ER) | payer BC, OTHER ==
[~2020-11-08] VITALS: Ht 160 cm; Wt 69.1 kg
[~2020-11-08 03:59] MED LIST changes: +AMLO-186 PO; -AMLO5TAB10 PO
[2020-11-08 04:03] VITALS: BP 114/82
--- NOTE | 2020-11-08 04:03 | PHYS DOC ---
Past History Past Medical History: Bronchitis, COPD, Depression, High Cholesterol, Hypertension, Other Past Surgical History: , Tonsillectomy Smoking: Cigarettes, Less than 1pk/day Alcohol Use: Rarely Drug Use: None General Adult HPI: HPI: '..I cut my finger with box sorter....I was working at [employer]..." .." Opening up a box finger nail liberian.. and I slipped with razor box sorter.. and go my lt.little finger...".." I ran water over it right away.. 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 who presents with 1.5 cm laceration to distal tip of left little or fifth finger. Laceration cuts to the nailbed is well as the medial lateral pad of finger. Mccallum s still have range of motion and sensation. Patient does not remember her last tetanus. No recent travel. No specific ill contacts. Patient is right-hand dominant. Patient has past medical history COPD, hypertension, hyperlipidemia, CVA 10 years ago, sleep apnea-obstructive, arthritis and chronic bronchitis. Patient has had flu vaccination , Pneumovax and herpes vaccination. Review of Systems: Review of Systems: Constitutional: Denies fever or chills Eyes: Denies change in visual acuity HENT: Denies nasal congestion or sore throat Respiratory: Denies cough or shortness of breath Cardiovascular: Denies chest pain or edema GI: Denies abdominal pain, nausea, vomiting, bloody stools or diarrhea : Denies dysuria Musculoskeletal: Denies back pain or joint pain Integument: Complains of laceration left fifth finger Neurologic: Denies headache, focal weakness or sensory changes Endocrine: Denies polyuria or polydipsia Lymphatic: Denies swollen glands Psychiatric: Denies depression or anxiety Family History: Family History: Noncontributory-to presentation. She has 1 full brother and 3 half-sisters and one half brother mother is alive with Alzheimer's. Mother at age 64 due to [place]. Current Medications: Current Meds: See nursing for home meds Allergies: Allergies: Allergies Coded Allergies Type Severity Reaction Last Updated Verified Penicillins Allergy Intermediate 02/07/15 No cephalexin Allergy Intermediate 02/07/15 No ciprofloxacin Allergy Intermediate Unknown 10/19/19 Yes Physical Exam: PE: Constitutional: Moderate acute distress, non-toxic appearance. [] HENT: Normocephalic, atraumatic, bilateral external ears normal, oropharynx moist, no oral exudates, nose normal. [] Eyes: PERRLA, EOMI, conjunctiva normal, no discharge. [] Neck: Normal range of motion, no tenderness, supple, no stridor. [] Cardiovascular:Heart rate regular rhythm, no murmur [] Lungs & Thorax: Bilateral breath sounds equal apex with scattered wheezes on auscultation [] Abdomen: Bowel sounds normal, soft, no tenderness, no masses, no pulsatile masses. Old surgery scar. Skin: Warm, dry, no erythema, no rash. Laceration left fifth finger as per HPI Back: No tenderness, no CVA tenderness. [] Extremities: No tenderness, no cyanosis, no clubbing, ROM intact, no edema. [] Neurologic: Alert and oriented X 3, normal motor function, normal sensory function, no focal deficits noted. [] Psychologic: Affect normal, judgement normal, mood normal. [] EKG: EKG: [] Radiology/Procedures: Radiology/Procedures: [] Heart Score: Risk Factors: Risk Factors: DM, Current or recent (<one month) smoker, HTN, HLP, family history of CAD, obesity. Risk Scores: Score 0 - 3: 2.5% MACE over next 6 weeks - Discharge Home Score 4 - 6: 20.3% MACE over next 6 weeks - Admit for Clinical Observation Score 7 - 10: 72.7% MACE over next 6 weeks - Early Invasive Strategies Course & Med Decision Making: Course & Med Decision Making Pertinent Labs and Imaging studies reviewed. (See chart for details) Procedure note-laceration repair-1.5 cm distal laceration of fifth finger left hand. Finger cleaned with Betadine and saline. Digital block with 2% lidocaine as well as localization of lidocaine at laceration site. Irrigated in range of motion with normal saline under pressure. Close laceration with 4 -0 Vicryl x2 simple sutures. Bacitracin applied. Dressing applied. Patient keep laceration clean and dry. Patient remove dressing immediately comes with the next 3 days . Once dressing removed apply Polysporin 4 times a day with Band- Aid keep area clean and dry. Suture does not need to be removed since they will dissolve. Follow-up workman comp. Take Tylenol ibuprofen for pain. Return if any concerns. Impression: 1. 1.5 cm laceration distal tip of the left fifth finger. [] Dragon Disclaimer: Dragon Disclaimer: This electronic medical record was generated, in whole or in part, using a voice recognition dictation system. Departure Departure: Referrals: PCP,UNKNOWN (PCP) Scripts Bacitracin/Polymyxin B Sulfate (Polysporin Ointment) 1 Each Packet 1 EACH TP QID for laceration for 90 Days, #360 PKT Prov: CORTNEY TYLER MD 11/08/20 Cece Disclaimer This chart was dictated in whole or in part using Voice Recognition software in a busy, high-work load, and often noisy Emergency Department environment. It may contain unintended and wholly unrecognized errors or omissions. Dragon Disclaimer This chart was dictated in whole or in part using Voice Recognition software in a busy, high-work load, and often noisy Emergency Department environment. It may contain unintended and wholly unrecognized errors or omissions. CORTNEY TYLER MD Nov 08, 2020 04:03
[2020-11-08] MEDS ORDERED: DIPH,PERTUSS(ACELL),TET VAC/PF 0.5 ML SYRINGE. VAX IM ONE ×2 (04:14→05:00)
[2020-11-08] MEDS ORDERED: LIDOCAINE 2% 20 ML VIAL. IJ ONE (04:30)
[2020-11-08] MEDS ORDERED: BACITRACIN ZINC TOPICAL OINT PACKET. TP ONE (04:30)
[2020-11-08] MEDS ORDERED: lisinopril (04:37)
[2020-11-08] MEDS ORDERED: hydrochlorothiazide (04:37)
[2020-11-08] MEDS ORDERED: clonidine (04:37)
[2020-11-08] MEDS ORDERED: buspar (04:37)
[2020-11-08] MEDS ORDERED: benzotropine (04:37)
[2020-11-08] MEDS ORDERED: trintellix (04:37)
[2020-11-08] MEDS ORDERED: BACI1PAC16 TP (04:44)
== END 2020-11-08 04:55 | disposition home or self-care (01) ==
LOC: ER 03:59
DX: S61.217A Laceration without foreign body of left little finger without damage to nail, initial encounter (principal); J44.9 Chronic obstructive pulmonary disease, unspecified; F32.9 Major depressive disorder, single episode, unspecified; E78.00 Pure hypercholesterolemia, unspecified; I10 Essential (primary) hypertension; F17.210 Nicotine dependence, cigarettes, uncomplicated; E78.5 Hyperlipidemia, unspecified; G47.30 Sleep apnea, unspecified; Z86.73 Personal history of transient ischemic attack (TIA), and cerebral infarction without residual deficits; Z88.0 Allergy status to penicillin; Z88.1 Allergy status to other antibiotic agents; W27.8XXA Contact with other nonpowered hand tool, initial encounter; Y93.89 Activity, other specified; Y92.89 Other specified places as the place of occurrence of the external cause; Y99.8 Other external cause status
CPT/HCPCS: 12001; 90471; 90715; 99283; J2001

== ENCOUNTER → 2020-12-09 | Outpatient (CLI) | payer OTHER ==
[~2020-12-09] MED LIST changes: +BACI1PAC16 TP; +CONTRAST GIVEN. MC PRN; +IOHEXOL 300 MG/ML 75 ML VIAL. IV ONE; +benzotropine; +buspar; +clonidine; +hydrochlorothiazide; +lisinopril; +trintellix
--- NOTE | 2020-12-09 13:12 | RAD ---
CT THORAX W INDICATION: Pulmonary nodule. Comparison: 10/19/2019. TECHNIQUE: Following the uneventful administration of intravenous contrast, 75 cc Omnipaque 300, axia l CT sections were obtained through the lungs and upper abdomen. Multiplanar reconstructions and MIP images were obtained. RS compliance statement: One or more of the following individualized dose reduction techniques were utilized for this examinat ion: 1. Automated exposure control 2. Adjustment of the mA and/or kV according to patient size 3. Use of iterative reconstruction technique FINDINGS: Lungs and Airways: No pulmonary mass or consolidation. Previously seen 4 mm left lower lobe nodule gonzalez s resolved. Centrilobular emphysema. No abnormality of the central airways. Pleura: The pleural spaces are normal. Heart and Mediastinum: The visualized thyroid is normal in size and attenuation. No axillary or supra clavicular lymphadenopathy. No mediastinal, hilar or retrocrural lymphadenopathy. Normal cardiac size . No pericardial effusion. Coronary artery atherosclerotic disease. Atherosclerosis of the thoracic a dali. Abdomen: Limited images through the upper abdomen show no abnormality of the visualized organs. Bones and Soft Tissues: Degenerative changes of the spine. IMPRESSION: 1. Previously seen 4 mm nodule has resolved. No pulmonary mass or thoracic lymphadenopathy. 2. Coronary artery atherosclerotic disease. 3. Emphysema. Electronically signed by: Kendrick Locke MD (12/09/2020 1:10 PM) [facility]
== END ==
LOC: CT 09:26
PROVIDERS: ATTEND Nurse Practitioner Family
DX: J43.2 Centrilobular emphysema (principal); I25.10 Atherosclerotic heart disease of native coronary artery without angina pectoris
CPT/HCPCS: 71260; Q9967

== ENCOUNTER → 2021-01-02 | Outpatient (CLI) | payer OTHER ==
[~2021-01-02] MED LIST changes: -CONTRAST GIVEN. MC PRN; -IOHEXOL 300 MG/ML 75 ML VIAL. IV ONE
--- NOTE | 2021-01-03 09:31 | RAD ---
DATE: 01/02/2021 10:05 AM EXAM: MAMMO MAN SCREENING BILATERAL HISTORY: Screening COMPARISON: 01/10/2018, 10/17/2015 Bilateral CC and MLO views of the breasts were performed. Bilateral breast tomosynthesis was performed in CC and MLO projections. This study was interpreted with the benefit of Computerized Aided Detection (CAD). FINDINGS: Breast Density: HETERO The breast parenchyma Is heterogeneously dense, which could reduce sensitivity of mammography. Breast parenchyma level C Benign calcifications are present bilaterally and stable benign biopsy marker in the posterior upper outer left breast is redemonstrated. No suspicious masses, microcalcifications or architectural distortion is present to suggest malignancy in either breast. The visualized axillae are unremarkable. IMPRESSION: No mammographic evidence of malignancy. BI-RADS CATEGORY: 2 BENIGN FINDING(S) RECOMMENDED FOLLOW-UP: 12M 12 MONTH FOLLOW-UP Annual screening mammography is recommended, unless clinically indicated sooner based on symptoms or change in physical exam. PQRS compliance statement: Patient information was entered into a reminder system with a target due date for the next mammogram. Mammography is a sensitive method for finding small breast cancers, but it does not detect them all and is not a substitute for careful clinical examination. A negative mammogram does not negate a clinically suspicious finding and should not result in delay in biopsying a clinically suspicious abnormality. "Our facility is accredited by the [employer] Mammography Program."
== END ==
LOC: MAMMO 09:28
PROVIDERS: ATTEND Nurse Practitioner Family
DX: Z12.31 Encounter for screening mammogram for malignant neoplasm of breast (principal)
CPT/HCPCS: 77063; 77067

== ENCOUNTER 2021-05-21 08:58 | Inpatient (IN) | payer SELFPAY ==
[~2021-05-21] VITALS: Ht 160 cm; Wt 61.9 kg
[2021-05-21] MEDS ORDERED: IPRATRPIUM/ALBUTEROL 0.5/2.5MG 3 ML NEBU. NEB ONE (09:15)
[2021-05-21] MEDS ORDERED: methylPREDNISolone SOD SUCC PF 125 MG/2 ML VIAL. IV ONE (09:15)
--- NOTE | 2021-05-21 09:19 | PHYS DOC ---
Past History Past Medical History: Bronchitis, COPD, Depression, High Cholesterol, Hypertension, Other Additional Past Medical Histor: spinal stenosis; manisha carpal tunnel, rt tendonitis, Past Surgical History: , Tonsillectomy Additional Past Surgical Histo: both surgeries over 15 years ago Smoking: Cigarettes, Less than 1pk/day Alcohol Use: Rarely Drug Use: None General Adult EDM: Chief Complaint: SHORTNESS OF BREATH HPI: HPI: 55-year-old female presents with shortness of breath. Patient has been having more shortness of breath the last couple of weeks. Is gotten significantly worse the last 2 days. The patient has history of COPD. She has no regular use her albuterol inhaler or her nebulizer. She tells me they are both . She has not used either one today or yesterday. She has been vaccinated against COVID-19. She would still like a COVID-19 test. Patient further states some chest pressure which she describes as mild. No history of heart problems. She denies fever or chills. Review of Systems: Review of Systems: Constitutional: Denies fever or chills Eyes: Denies change in visual acuity HENT: Denies nasal congestion or sore throat Respiratory: shortness of breath Cardiovascular: Chest pain GI: Denies abdominal pain, nausea, vomiting, bloody stools or diarrhea : Denies dysuria Musculoskeletal: Denies back pain or joint pain Integument: Denies rash Neurologic: Denies headache, focal weakness or sensory changes Endocrine: Denies polyuria or polydipsia Lymphatic: Denies swollen glands Psychiatric: Denies depression or anxiety Allergies: Allergies: Allergies Coded Allergies Type Severity Reaction Last Updated Verified Penicillins Allergy Intermediate 11/08/20 No [id number] Antimigraine Agents Allergy Intermediate 11/08/20 Yes cephalexin Allergy Intermediate 11/08/20 No ciprofloxacin Allergy Intermediate Unknown 11/08/20 Yes Physical Exam: PE: Constitutional: Well developed, well nourished, no acute distress, non-toxic appearance. [] HENT: Normocephalic, atraumatic, bilateral external ears normal, oropharynx moist, no oral exudates, nose normal. [] Eyes: PERRLA, EOMI, conjunctiva normal, no discharge. [] Neck: Normal range of motion, no tenderness, supple, no stridor. [] Cardiovascular: Heart rate 85, regular rhythm, no murmur [] Lungs & Thorax: Bilateral breath sounds diminished with expiratory wheezing throughout [] Abdomen: Bowel sounds normal, soft, no tenderness, no masses, no pulsatile masses. [] Skin: Warm, dry, no erythema, no rash. [] Back: No tenderness, no CVA tenderness. [] Extremities: No tenderness, no cyanosis, no clubbing, ROM intact, no edema. [] Neurologic: Alert and oriented X 3, normal motor function, normal sensory function, no focal deficits noted. [] Psychologic: Affect normal, judgement normal, mood normal. [] Current Patient Data: Vital Signs: Vital Signs Date Time Temp Pulse Resp B/P (MAP) Pulse Ox O2 Delivery O2 Flow Rate FiO2 05/21/21 09:03 98.3 84 22 129/84 97 Room Air EKG: EKG: Sinus rhythm, rate 85, normal axis, no ST elevation or depression. [] Radiology/Procedures: Radiology/Procedures: [] Heart Score: C/O Chest Pain: Yes HEART Score for Chest Pain: HEART Score for Chest Pain Response (Comments) Value History Slighlty/Non-Suspicious 0 ECG Nonspecific Repolarizatio 1 Age >45 - < 65 1 Risk Factors 1 or 2 Risk Factors 1 Troponin < Normal Limit 0 Total 3 Risk Factors: Risk Factors: DM, Current or recent (<one month) smoker, HTN, HLP, family history of CAD, obesity. Risk Scores: Score 0 - 3: 2.5% MACE over next 6 weeks - Discharge Home Score 4 - 6: 20.3% MACE over next 6 weeks - Admit for Clinical Observation Score 7 - 10: 72.7% MACE over next 6 weeks - Early Invasive Strategies Course & Med Decision Making: Course & Med Decision Making Pertinent Labs and Imaging studies reviewed. (See chart for details) The patient was given a DuoNeb treatment with minimal improvement. She was then given a 1 hour albuterol treatment and 125 Solu-Medrol. She had some improvement in her breathing, but is still wheezing bilaterally and tight. I offered to admit the patient to the hospital and she is in agreement. I spoke with Dr. Camilo and he has accepted the patient to this hospital for COPD exacerbation. [] Cece Disclaimer: Cece Disclaimer: This electronic medical record was generated, in whole or in part, using a voice recognition dictation system. Departure Departure: Impression: Primary Impression: COPD exacerbation Disposition: ADMITTED INPATIENT Admitting Physician: Katerina Camilo Condition: STABLE Referrals: PCP,UNKNOWN (PCP) CAM AVINA DO May 21, 2021 09:19
[2021-05-21] MEDS ORDERED: ALBUTEROL SULFATE 8GM INHALER. ONE (09:58)
[2021-05-21] MEDS ORDERED: ALBUTEROL SULFATE 2.5 MG/3 ML NEBU. CONT NEB ONE (10:00)
--- NOTE | 2021-05-21 10:26 | RAD ---
Exam performed: One view chest. Indication: Reason: SOB / Spl. Instructions: / History: Date of Service: 05/21/2021 9:44 AM Comparison: None available . Single AP upright portable view chest findings: Cardiomediastinal silhouette is within limits of normal. No acute infiltrates, effusion or pneumotho rax is detected. The bony structures are normal. Impression: No acute cardiopulmonary process is detected. Electronically signed by: Deborah Arias MD (05/21/2021 10:24 AM) [id number]
[2021-05-21] MEDS ORDERED: ONDANSETRON PF 4 MG/2 ML VIAL. IVP PRN (12:15)
[2021-05-21 15:10] VITALS: BP 116/73
[2021-05-21] MEDS ORDERED: IPRATRPIUM/ALBUTEROL 0.5/2.5MG 3 ML NEBU. NEB SCH (16:00)
--- NOTE | 2021-05-21 16:03 | NUR ---
The patient, CHARO SABA, 55 y/o, F admitted by SOMMER GUO MD, was given written information regarding hospital policies, unit procedures and contact persons. Valuables were checked and VS taken please see chart.
[2021-05-21 16:46] LABS: HEMATOCRIT 48.2 % (36.0-47.0); HEMOGLOBIN 16.3 g/dL (12.0-15.5); RED BLOOD COUNT 5.07 x10^6/uL (3.50-5.40); RED CELL DISTRIBUTION WIDTH 13.1 % (11.5-14.5); WHITE BLOOD COUNT 9.3 x10^3/uL (4.0-11.0)
[2021-05-21 16:49] LABS: CREATININE 0.6 mg/dL (0.6-1.0); GFR 103.4; POTASSIUM 3.6 mmol/L (3.5-5.1)
[2021-05-21] MEDS ORDERED: FLUT1AER IH (16:53)
[2021-05-21] MEDS ORDERED: OMEP20CA16 PO (16:53)
[2021-05-21] MEDS ORDERED: VORT20TA PO (16:53)
[2021-05-21] MEDS ORDERED: CLON-276 PO (16:53)
[2021-05-21] MEDS ORDERED: CETI10TA74 PO (16:53)
[2021-05-21] MEDS ORDERED: SERT25TA PO (16:53)
[2021-05-21] MEDS ORDERED: TRAM50TA PO (16:53)
[2021-05-21] MEDS ORDERED: ALBU2.5V8 INH (16:53)
[2021-05-21] MEDS ORDERED: HYDR-2145 PO (16:53)
[2021-05-21] MEDS ORDERED: CRESTOR20 MG PO (16:53)
--- NOTE | 2021-05-21 18:07 | EKG ---
[address] [address] Test Date: 2021-05-21 Test Time: 09:06:23 Pat Name: CHARO SABA Department: Room: 120 A Gender: F Manager Intensive Care Unit: [facility] : [id number] Requested By: SOMMER GUO Order Number: [id number] Reading MD: Measurements Intervals [place] Rate: 85 P: -26 DE: 156 QRS: 0 QRSD: 62 T: -6 QT: 360 QTc: 429 Interpretive Statements SINUS RHYTHM LEFTWARD AXIS CONSIDER RIGHT VENTRICULAR HYPERTROPHY T ABNORMALITY IN INFERIOR LEADS ABNORMAL ECG RI6.02 No previous ECG available for comparison
[2021-05-21 19:15] VITALS: BP 132/82
[2021-05-21] MEDS: NICOTINE 21MG PATCH. TD SCH ×2 (20:00→20:43)
[2021-05-21] MEDS: BUDESONIDE 0.5 MG/2 ML NEBU NEB SCH (20:00)
[2021-05-21] MEDS: IPRATRPIUM/ALBUTEROL 0.5/2.5MG 3 ML NEBU. NEB SCH (20:00)
[2021-05-21] MEDS ORDERED: IPRATROPIUM/ALBUTEROL 20/100mcg/INH INHALER. INH SCH (20:00)
--- NOTE | 2021-05-21 20:08 | HP ---
ADMIT DATE: 05/21/2021 HISTORY OF PRESENT ILLNESS: The patient is a 55-year-old female patient who came to the Emergency Room complaining of shortness of breath, cough, chest discomfort that has been going on for almost two weeks now. Her symptoms worsened over the last 2 days. She has no regular use of her albuterol inhaler or nebulizer. She said that she has both of them were . She has not used either one today or yesterday. She has been vaccinated against COVID-19 by [employer]. She would like still to be COVID-19 tested. The patient further states some chest pressure, she describes as mild. No history of heart problems. She was extensively evaluated in the Emergency Room, has had lab work and imaging studies. Her lab work was unremarkable. White cell count was normal. Her chest x-ray showed no acute cardiopulmonary process detected. The patient was admitted with a diagnosis of a COPD exacerbation. She was treated with steroids and DuoNeb, and was admitted to continue on steroids and nebulizer treatment together with all her medications. PAST MEDICAL HISTORY: Significant for COPD, hypertension, hyperlipidemia, TIA, and history of obstructive sleep apnea. PAST SURGICAL HISTORY: Significant for , tonsillectomy. ALLERGIES: SHE IS ALLERGIC TO CIPRO, PENICILLIN, KEFLEX, AND ____. MEDICATIONS: She is currently on the following medication: She is on cetirizine 10 mg once a day, albuterol sulfate for ProAir 1 puff every 6 hours, clonidine 0.2 mg twice a day, amlodipine besylate 5 mg she takes 2 tablets once a day, meloxicam 15 mg once a day, tramadol 50 mg once a day, sertraline 25 mg daily, Trintellix 20 mg once a day, alprazolam 0.5 mg at bedtime, hydrochlorothiazide 25 mg once a day, Breo Ellipta 100/25 one puff once a day, Flonase 2 sprays to each nostril once a day, omeprazole 20 mg once a day and Crestor 20 mg at bedtime. FAMILY HISTORY: Has one brother who is younger and healthy. Father because of dementia and myocardial infarction. Mother secondary to myocardial infarction at age of 69. SOCIAL HISTORY: She is , has one daughter. She smokes 1 pack a day, does not drink alcohol or recreational drugs. She works at [employer]. REVIEW OF SYSTEMS: As per history of present illness. PHYSICAL EXAMINATION: GENERAL: On examining her, she looked well. She was slightly tachypneic, but there is no pallor, jaundice, cyanosis or thyromegaly. No jugular venous distention. No lower limb edema. VITAL SIGNS: Her heart rate was 84, blood pressure is 129/84, temperature was 98.3, respiratory rate 22, and oxygen saturation was 97% on room air. HEAD, EYES, EARS, NOSE, AND THROAT: Normocephalic and atraumatic. NECK: Supple. HEART: Normal first and second heart sounds, no gallop or murmur. CHEST: Shows central trachea, equally reduced expansion, reduced air entry, vesicular breath sounds with bilateral scattered rhonchi. I could not appreciate any crepitation. ABDOMEN: Distended, soft, nontender. NEUROLOGIC: She was grossly intact. LABORATORY DATA: On arrival showed a white cell count of 9300, hemoglobin 16, hematocrit 48, MCV 95 and platelet count 235,000. Her serum sodium was 146, potassium 3.6, chloride 106, bicarbonate 31, anion gap of 9, BUN 11, creatinine 0.6. Estimated GFR was 103 mL per minute. Her glucose 101 and calcium was 9. Chest x-ray showed cardiomediastinal silhouette is within normal limits. No acute infiltrate, effusion or pneumothorax detected. The bony structures are normal. ASSESSMENT AND PLAN: The patient was admitted with chronic obstructive pulmonary disease exacerbation. Other medical problems include hypertension, hyperlipidemia. I will reconcile all her medications, start her on steroids and nebulized treatment, and repeat her lab works. I am going to start her on oxygen at 2 liters and decide the further management according to her response. SMITH/DANNY GARCIA: Mi TID: [id number]
[2021-05-21] MEDS: methylPREDNISolone SOD SUCC PF 40 MG/ML VIAL. IV SCH (20:43)
[2021-05-21] MEDS: ATORVASTATIN CALCIUM 20 MG TABLET PO SCH (20:43)
[2021-05-21] MEDS: MONTELUKAST 10 MG TABLET. PO SCH ×2 (20:43→21:00)
[2021-05-21] MEDS: ALPRAZolam 0.5 MG TABLET PO SCH (20:44)
[2021-05-21] MEDS: cloNIDine HCL 0.2 MG TABLET PO SCH (20:44)
[2021-05-21] MEDS: MELOXICAM 15 MG TABLET. PO SCH (20:44)
[2021-05-21 22:47] VITALS: BP 127/72
[2021-05-22] MEDS: IPRATRPIUM/ALBUTEROL 0.5/2.5MG 3 ML NEBU. NEB SCH ×4 (05:00→21:42)
[2021-05-22 05:17] VITALS: BP 106/63
[2021-05-22] MEDS: methylPREDNISolone SOD SUCC PF 40 MG/ML VIAL. IV SCH ×3 (05:49→20:09)
[2021-05-22] MEDS: BUDESONIDE 0.5 MG/2 ML NEBU NEB SCH ×2 (08:00→21:42)
[2021-05-22] MEDS: traMADol 50 MG TABLET PO SCH ×2 (09:00→09:39)
[2021-05-22] MEDS: FLUTICASONE 50MCG/NASAL SPRAY 16GM BOTTLE. NS SCH (09:00)
[2021-05-22] MEDS: NON FORMULARY ITEM (Vortioxetine Hydrobromide (Trintellix) 1 TAB) PO SCH (09:00)
[2021-05-22] MEDS: NICOTINE 21MG PATCH. TD SCH (09:38)
[2021-05-22] MEDS: CETIRIZINE HCL 10 MG TABLET PO SCH (09:39)
[2021-05-22] MEDS: PANTOPRAZOLE 40 MG TABLET. PO SCH (09:39)
[2021-05-22] MEDS: hydroCHLOROthiazide 25 MG TABLET. PO SCH (09:39)
[2021-05-22] MEDS: SERTRALINE 25 MG TABLET. PO SCH (09:39)
[2021-05-22] MEDS: cloNIDine HCL 0.2 MG TABLET PO SCH ×2 (09:39→20:10)
[2021-05-22] MEDS: amLODIPine BESYLATE 10 MG TABLET PO SCH (09:39)
[2021-05-22 11:29] VITALS: BP 109/69
[2021-05-22 16:15] VITALS: BP 104/65
[2021-05-22 19:00] VITALS: BP 104/61
[2021-05-22] MEDS: MELOXICAM 15 MG TABLET. PO SCH (20:09)
[2021-05-22] MEDS: ALPRAZolam 0.5 MG TABLET PO SCH (20:09)
[2021-05-22] MEDS: MONTELUKAST 10 MG TABLET. PO SCH ×2 (20:09→20:23)
[2021-05-22] MEDS: ATORVASTATIN CALCIUM 20 MG TABLET PO SCH (20:11)
--- NOTE | 2021-05-23 00:27 | PN ---
DATE: 05/22/2021 SUBJECTIVE: The patient is resting, slightly propped up in bed, eating her lunch comfortably, in no apparent distress. Questioning her, she continued to complain of cough, mostly dry and continued to have some chest tightness and wheezing, although slightly better than yesterday. PHYSICAL EXAMINATION GENERAL: When I examined her, she looked well. No pallor, jaundice, cyanosis, no lymphadenopathy, no thyromegaly, no jugular venous distention. No limb edema. VITAL SIGNS: Her heart rate was 72, blood pressure is 109/69, temperature was 98.4, respiratory rate 20, and oxygen saturation was 95% on 2 liters of oxygen. HEAD, EYES, EARS, NOSE, AND THROAT: Normocephalic, atraumatic. NECK: Supple. HEART: Normal first and second heart sounds, no gallop or murmur. CHEST: Shows central trachea, equal bilateral chest expansion, air entry, vesicular breath sounds with bilateral scattered rhonchi, slightly better than yesterday. I could not appreciate any crepitation. ABDOMEN: Distended, soft, nontender. NEUROLOGIC: She is grossly intact. LABORATORY DATA: She has no lab work done this morning. Her coronavirus by PCR was negative. ASSESSMENT: 1. Chronic obstructive pulmonary disease exacerbation. 2. Hypertension. 3. Hyperlipidemia. 4. Obstructive sleep apnea. 5. Transient ischemic attack. PLAN: To continue with IV steroids. Continue with nebulized albuterol and Atrovent. We will evaluate her again tomorrow if she improves and feels better. She will be discharged home to continue on a tapering course of steroids. EDUARDO DR: Mi TID: [id number]
[2021-05-23] MEDS: methylPREDNISolone SOD SUCC PF 40 MG/ML VIAL. IV SCH (05:26)
[2021-05-23] MEDS: IPRATRPIUM/ALBUTEROL 0.5/2.5MG 3 ML NEBU. NEB SCH ×2 (05:41→11:18)
[2021-05-23] MEDS: CETIRIZINE HCL 10 MG TABLET PO SCH (08:13)
[2021-05-23] MEDS: cloNIDine HCL 0.2 MG TABLET PO SCH (08:14)
[2021-05-23] MEDS: PANTOPRAZOLE 40 MG TABLET. PO SCH (08:14)
[2021-05-23] MEDS: hydroCHLOROthiazide 25 MG TABLET. PO SCH (08:14)
[2021-05-23] MEDS: amLODIPine BESYLATE 10 MG TABLET PO SCH (08:14)
[2021-05-23] MEDS: SERTRALINE 25 MG TABLET. PO SCH (08:14)
[2021-05-23] MEDS: traMADol 50 MG TABLET PO SCH (08:15)
[2021-05-23] MEDS: FLUTICASONE 50MCG/NASAL SPRAY 16GM BOTTLE. NS SCH (08:15)
[2021-05-23] MEDS: NICOTINE 21MG PATCH. TD SCH (08:15)
[2021-05-23] MEDS: NON FORMULARY ITEM (Vortioxetine Hydrobromide (Trintellix) 1 TAB) PO SCH (08:16)
[2021-05-23 11:03] VITALS: BP 110/59
[2021-05-23] MEDS: BUDESONIDE 0.5 MG/2 ML NEBU NEB SCH (11:19)
--- NOTE | 2021-05-23 13:48 | DS ---
DATE OF DISCHARGE: 05/23/2021 HOSPITAL COURSE: The patient is a 55-year-old female patient who was admitted with worsening shortness of breath, cough, chest tightness and wheezing. We did start her on IV Solu-Medrol, together with albuterol and Atrovent inhaler and she did actually very well. When I saw her this afternoon, she was almost flat in bed, in no apparent distress. Her lungs are clear. No crepitation or rhonchi and a decision was made to discharge her home to continue on a tapering course of steroids. PHYSICAL EXAMINATION: GENERAL: When I examined her this afternoon, she looked pale, but no jaundice, cyanosis or thyromegaly. No jugular venous distention. No limb edema. VITAL SIGNS: Her heart rate was 72, blood pressure is 110/60, temperature was 98.9, respiratory rate was 18 and oxygen saturation was 91% on room air. HEAD, EYES, EARS, NOSE, AND THROAT: Normocephalic, atraumatic. NECK: Supple. HEART: Normal first and second heart sounds, no gallop or murmur. CHEST: Clear to auscultation, no crepitation or rhonchi. ABDOMEN: Scaphoid, soft, nontender. NEUROLOGIC: She was grossly intact. LABORATORY DATA: Unremarkable. DISCHARGE MEDICATIONS: She was discharged home to continue on a tapering course of steroids in the form of prednisone 40 mg once a day for 3 days, 30 mg once a day for 3 days, 20 mg once a day for 3 days, then 10 mg once a day 3 days, albuterol sulfate 1 puff every 4-6 hours as needed, alprazolam 0.5 mg at bedtime, amlodipine 10 mg once a day, cetirizine for Zyrtec 10 mg once a day, clonidine 0.2 mg twice a day, Flonase 2 sprays to each nostril once a day, Breo Ellipta 1 puff daily, hydrochlorothiazide 25 mg once a day, meloxicam 50 mg once a day, [place]-3 20 mg once a day, Crestor 20 mg once a day, sertraline for Zoloft 25 mg once a day, tramadol 50 mg daily and Trintellix 20 mg once a day. FINAL DISCHARGE DIAGNOSES: 1. Chronic obstructive pulmonary disease exacerbation. 2. Hypertension. 3. Hyperlipidemia. 4. Obstructive sleep apnea. 5. Transient ischemic attack. ADRIANA DR: Mi TID: [id number]
--- NOTE | 2021-05-23 14:37 | NUR ---
NURSING NOTE PT DISCHARGED HOME VIA WHEELCHAIR ACCOMPANIED BY RICKI BROWN. PT GIVEN WRITTEN AND VERBAL DISCHARGE INSTRUCTIONS AND PRESCRIPTIONS. PER DR GUO, HE WILL FILL OUT HER FMLA NEXT WEEK MARCH FAX TO [employer]. 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 THEO BRONSON.
== END 2021-05-23 14:39 | disposition home or self-care (01) | DRG 191 ==
LOC: ER 08:58 → 1 SOUTH 12:17
PROVIDERS: ADMIT Internal Medicine; ATTEND Internal Medicine
DX: J44.1 Chronic obstructive pulmonary disease with (acute) exacerbation (principal); G45.9 Transient cerebral ischemic attack, unspecified; E78.00 Pure hypercholesterolemia, unspecified; E78.5 Hyperlipidemia, unspecified; F17.210 Nicotine dependence, cigarettes, uncomplicated; G47.33 Obstructive sleep apnea (adult) (pediatric); I10 Essential (primary) hypertension; Z20.822 Contact with and (suspected) exposure to COVID-19; Z82.49 Family history of ischemic heart disease and other diseases of the circulatory system; Z86.73 Personal history of transient ischemic attack (TIA), and cerebral infarction without residual deficits; F32.9 Major depressive disorder, single episode, unspecified; M48.00 Spinal stenosis, site unspecified; Z88.1 Allergy status to other antibiotic agents; Z88.0 Allergy status to penicillin; Z88.8 Allergy status to other drugs, medicaments and biological substances
CPT/HCPCS: 36415; 71045; 80048; 85027; 93005; 94640; 94644; 94760; 96374; J2920; J2930; U0003; 99285-25; J7613

== ENCOUNTER 2021-06-05 09:38 | Inpatient (IN) | payer SELFPAY ==
[~2021-06-05] VITALS: Ht 160 cm; Wt 64.6 kg
[~2021-06-05 09:38] MED LIST changes: +ALBU2.5V8 INH; +CETI10TA74 PO; +CLON-276 PO; +CRESTOR20 MG PO; +FLUT1AER IH; +HYDR-2145 PO; +OMEP20CA16 PO; +SERT25TA PO; +VORT20TA PO
[2021-06-05 10:30] LABS: BASO # 0.1 x10^3/uL (0.0-0.2); BASO % 1 % (0-3); EOS # 0.2 x10^3/uL (0.0-0.7); EOS % 1 % (0-3); HEMATOCRIT 45.4 % (36.0-47.0); HEMOGLOBIN 15.4 g/dL (12.0-15.5); LYMPH % 8 % (24-48); MEAN CORPUSCULAR HEMOGLOBIN 32 pg (25-35); MEAN CORPUSCULAR HGB CONC 34 g/dL (31-37); MEAN CORPUSCULAR VOLUME 94 fL (79-100); MONO # 1.2 x10^3/uL (0.0-1.1); MONO % 10 % (0-9); NEUT # 10.1 x10^3uL (1.8-7.7); NEUT % 80 % (31-73); PLATELET COUNT 176 x10^3/uL (140-400); RED BLOOD COUNT 4.82 x10^6/uL (3.50-5.40); RED CELL DISTRIBUTION WIDTH 13.4 % (11.5-14.5); WHITE BLOOD COUNT 12.6 x10^3/uL (4.0-11.0)
[2021-06-05] MEDS ORDERED: DEXAMETHASONE SOD PHOS 10 MG/ML VIAL. IVP ONE (10:30)
[2021-06-05] MEDS ORDERED: IPRATRPIUM/ALBUTEROL 0.5/2.5MG 3 ML NEBU. NEB ONE (10:30)
[2021-06-05] MEDS ORDERED: ONDANSETRON PF 4 MG/2 ML VIAL. IVP PRN (10:30)
[2021-06-05] MEDS ORDERED: IBUPROFEN 600 MG TABLET. PO ONE (10:30)
--- NOTE | 2021-06-05 10:32 | PHYS DOC ---
Past History Past Medical History: Bronchitis, COPD, Depression, High Cholesterol, Hypertension, Other Additional Past Medical Histor: spinal stenosis; manisha carpal tunnel, rt tendonitis, Past Surgical History: , Tonsillectomy Additional Past Surgical Histo: both surgeries over 15 years ago Smoking: Cigarettes, Less than 1pk/day Alcohol Use: Occasionally Drug Use: None General Adult EDM: Chief Complaint: SHORTNESS OF BREATH HPI: HPI: Patient is a 55-year-old female who presents with shortness of breath, nonpro ductive cough, fever. Patient states "Ishould be on 2 L nasal cannula oxygen at home, the company still has not delivered my oxygen tubing". "I have been giving breathing treatments at home, but that has not helped me very much". Patient is also reporting some lower back pain from coughing. Patient is satting 88% on room air. Denies nausea/vomiting/diarrhea. Denies chest pain. History of COPD, hypertension, hyperlipidemia, depression. Review of Systems: Review of Systems: Constitutional: Reports fever and chills Eyes: Denies change in visual acuity HENT: Denies nasal congestion or sore throat Respiratory: Reports cough and shortness of breath Cardiovascular: Denies chest pain or edema GI: Denies abdominal pain, nausea, vomiting, bloody stools or diarrhea : Denies dysuria Musculoskeletal: Reports lower back pain Integument: Denies rash Neurologic: Denies headache, focal weakness or sensory changes Endocrine: Denies polyuria or polydipsia Lymphatic: Denies swollen glands Psychiatric: Reports history of depression Current Medications: Current Meds: Current Medications Medications (Trade) Dose Ordered Sig/[facility] Start Time Stop Time Status Last Admin Dose Admin Morphine Sulfate (Morphine 4mg Syringe) 4 mg 1X PRN 06/05/21 10:30 Ondansetron HCl (Zofran) 4 mg 1X PRN 06/05/21 10:15 UNV Allergies: Allergies: Allergies Coded Allergies Type Severity Reaction Last Updated Verified Penicillins Allergy Intermediate 11/08/20 No [id number] Antimigraine Agents Allergy Intermediate 11/08/20 Yes cephalexin Allergy Intermediate 11/08/20 No ciprofloxacin Allergy Intermediate Unknown 11/08/20 Yes Physical Exam: PE: Constitutional: Well developed, well nourished, no acute distress, non-toxic appearance. [] HENT: Normocephalic, atraumatic, bilateral external ears normal, oropharynx moist, no oral exudates, nose normal. [] Eyes: PERRLA, EOMI, conjunctiva normal, no discharge. [] Neck: Normal range of motion, no tenderness, supple, no stridor. [] Cardiovascular:Heart rate regular rhythm, no murmur [] Lungs & Thorax: Wheezing throughout, increased respiratory rate Abdomen: Bowel sounds normal, soft, no tenderness, no masses, no pulsatile m asses. [] Skin: Warm, dry, no erythema, no rash. [] Back: No tenderness, no CVA tenderness. [] Extremities: No tenderness, no cyanosis, no clubbing, ROM intact, no edema. [] Neurologic: Alert and oriented X 3, normal motor function, normal sensory function, no focal deficits noted. [] Psychologic: Affect normal, judgement normal, mood normal. [] Current Patient Data: Vital Signs: Vital Signs Date Time Temp Pulse Resp B/P (MAP) Pulse Ox O2 Delivery O2 Flow Rate FiO2 06/05/21 09:48 99.4 93 26 149/89 89 EKG: EKG: Sinus rhythm. Heart rate 91 bpm. Intervals normal. [place]ord normal. Read by Dr. Zacarias [] Radiology/Procedures: Radiology/Procedures: []EXAMINATION: XR CHEST 1V CLINICAL HISTORY: Shortness of breath EXAM DATE/TIME: 06/05/2021 10:54 AM COMPARISON: 05/21/2021 FINDINGS: Lines, Tubes, and Devices: None. Cardiomediastinal Silhouette: Normal heart size. Aortic atherosclerotic calcification. Lungs and Pleura: No evidence of focal airspace consolidation or pleural effusion. Pulmonary vasculature unremarkable. Bones and Soft Tissues: Degenerative changes of the thoracic spine. IMPRESSION: No evidence of acute cardiopulmonary abnormality or significant interval change. Electronically signed by: Andrea Dunn DO (06/05/2021 11:02 AM) [id number] EXAM: CT angiography of the chest with intravenous contrast. HISTORY: Shortness of breath. TECHNIQUE: Computed tomographic images of the chest were obtained following the administration of intravenous contrast according to angiography protocol. Multiplanar reformatting was performed and three dimensional maximum intensity projection images were obtained. *One or more of the following individualized dose reduction techniques were utilized for this examination: 1. Automated exposure control. 2. Adjustment of the mA and/or kV according to patient size. 3. Use of iterative reconstruction technique. COMPARISON: 12/09/2020. FINDINGS: There is no evidence of pulmonary embolism. There is no aortic aneurysm or dissection. The heart is normal in size. There has been slight interval increase in a tiny anterior pericardial effusion. There are stable nonspecific mediastinal lymph nodes. There is stable mild hilar lymphadenopathy. There is suggestion of a 1.4 cm nodule within the posterior right thyroid lobe, without a clear correlate on the prior study. This difficult to assess in the absence of contrast. There is no pneumothorax or pleural effusion. There is posterior dependent and basilar atelectasis. There is linear atelectasis or scarring within the right upper lobe along the right minor fissure. There is emphysema. There is an 8 mm slightly spiculated nodule within the posterior right upper lobe. There is a 4 mm nodule with surrounding groundglass within the anterior left lower lobe (series 4, image 73). There are few additional similar-appearing tiny nodular groundglass opacities within the adjacent left lower lobe. There is mild central bronchial wall thickening. There is no acute finding involving the upper abdomen. There is suspected hepatomegaly. There is calcified atherosclerotic plaque at the origins of the superior mesenteric artery and bilateral renal arteries. There are degenerative changes involving the spine. T here is no acute or suspicious osseous lesion. IMPRESSION: 1. No evidence of pulmonary embolism. 2. New 8 mm spiculated nodule within the right upper lobe, the morphology of which is concerning for neoplasm. This may be too small to characterize with PET /CT. Short-term follow-up with a CT in 3 months is recommended. There is also an indeterminant 4 mm nodule with adjacent tiny groundglass nodular opacities within the left lower lobe, the appearance of which favors a postinfectious or postinflammatory etiology. Attention the time of follow-up is recommended. 3. Pulmonary emphysema and central bronchial wall thickening likely due to the sequela of bronchitis. 4. Stable prominent hilar lymph nodes. These may be reactive in etiology. 5. Slight nodular extension of the posterior aspect of the right thyroid lobe. There is no convincing nodule in this location on the contrast-enhanced study performed 12/09/2020. Thyroid sonography can be performed to confirm benignity if clinically indicated. Electronically signed by: Candy Cano MD (06/05/2021 12:51 PM) [id number] Heart Score: C/O Chest Pain: No Risk Factors: Risk Factors: DM, Current or recent (<one month) smoker, HTN, HLP, family history of CAD, obesity. Risk Scores: Score 0 - 3: 2.5% MACE over next 6 weeks - Discharge Home Score 4 - 6: 20.3% MACE over next 6 weeks - Admit for Clinical Observation Score 7 - 10: 72.7% MACE over next 6 weeks - Early Invasive Strategies Course & Med Decision Making: Course & Med Decision Making Pertinent Labs and Imaging studies reviewed. (See chart for details) [] 55-year-old female presents with shortness of breath, nonproductive cough and fever. Patient was recently admitted to the hospital and told she would need to wear 2 L O2 all the time at home. Patient states the company has still not delivered oxygen. Patient was satting 88% on room air. Patient has wheezing throughout upon auscultation and an increased respiratory rate. Afebrile on arrival. Patient is reporting some lower back pain due to coughing. Patient has history of COPD. D-dimer elevated. CTA chest ordered to rule out PE. Troponin negative. All other labs unremarkable. Chest x-ray is unremarkable. CTA is negative for PE. CTA showed a new 8 mm spiculated nodule within the right upper lobe, the morphology of which is concerning for neoplasm. Recommend follow-up in 3 months. Discussed results with patient and admission plan. I spoke with will be accepting patient at [facility]. Patient started on doxycycline. Cece Disclaimer: Cece Disclaimer: This electronic medical record was generated, in whole or in part, using a voice recognition dictation system. Departure Departure: Impression: Primary Impression: Hypoxia Additional Impression: COPD exacerbation Disposition: ADMITTED INPATIENT Admitting Physician: Katerina Camilo Condition: STABLE Referrals: PCP,TIM (PCP) WOO CINTRON APRN Jun 05, 2021 10:32
[2021-06-05] MEDS: MORPHINE SULFATE 4 MG/ML DISP.SYRIN. IV PRN (10:33)
[2021-06-05] MEDS ORDERED: MORPHINE SULFATE 4 MG/ML DISP.SYRIN. IV ONE (10:45)
[2021-06-05 10:50] LABS: ALBUMIN 3.6 g/dL (3.4-5.0); ALBUMIN/GLOBULIN RATIO 1.3 (1.0-1.7); CALCIUM 8.3 mg/dL (8.5-10.1); CREATININE 0.6 mg/dL (0.6-1.0); GFR 103.4; POTASSIUM 3.6 mmol/L (3.5-5.1); TOTAL BILIRUBIN 0.4 mg/dL (0.2-1.0); TOTAL PROTEIN 6.3 g/dL (6.4-8.2)
[2021-06-05] MEDS ORDERED: NYSTATIN 100,000 UNITS/ML ORAL SUSPENSION 60ML BOTTLE. SWSW ONE (11:00)
--- NOTE | 2021-06-05 11:05 | RAD ---
EXAMINATION: XR CHEST 1V CLINICAL HISTORY: Shortness of breath EXAM DATE/TIME: 06/05/2021 10:54 AM COMPARISON: 05/21/2021 FINDINGS: Lines, Tubes, and Devices: None. Cardiomediastinal Silhouette: Normal heart size. Aortic atherosclerotic calcification. Lungs and Pleura: No evidence of focal airspace consolidation or pleural effusion. Pulmonary vasculat ure unremarkable. Bones and Soft Tissues: Degenerative changes of the thoracic spine. IMPRESSION: No evidence of acute cardiopulmonary abnormality or significant interval change. Electronically signed by: Andrea Dunn DO (06/05/2021 11:02 AM) [id number]
--- NOTE | 2021-06-05 11:45 | EKG ---
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
[2021-06-05] MEDS ORDERED: CONTRAST GIVEN. MC PRN (12:00)
[2021-06-05] MEDS ORDERED: IOHEXOL 350 MG/ML 100 ML VIAL. IV ONE (12:00)
[2021-06-05] MEDS ORDERED: NICOTINE 21MG PATCH. TD ONE (12:00)
--- NOTE | 2021-06-05 12:54 | RAD ---
EXAM: CT angiography of the chest with intravenous contrast. HISTORY: Shortness of breath. TECHNIQUE: Computed tomographic images of the chest were obtained following the administration of int ravenous contrast according to angiography protocol. Multiplanar reformatting was performed and three dimensional maximum intensity projection images were obtained. *One or more of the following individualized dose reduction techniques were utilized for this examina tion: 1. Automated exposure control. 2. Adjustment of the mA and/or kV according to patient size. 3. Use of iterative reconstruction technique. COMPARISON: 12/09/2020. FINDINGS: There is no evidence of pulmonary embolism. There is no aortic aneurysm or dissection. The heart is normal in size. There has been slight interval increase in a tiny anterior pericardial effus ion. There are stable nonspecific mediastinal lymph nodes. There is stable mild hilar lymphadenopathy . There is suggestion of a 1.4 cm nodule within the posterior right thyroid lobe, without a clear cor relate on the prior study. This difficult to assess in the absence of contrast. There is no pneumothorax or pleural effusion. There is posterior dependent and basilar atelectasis. T here is linear atelectasis or scarring within the right upper lobe along the right minor fissure. The re is emphysema. There is an 8 mm slightly spiculated nodule within the posterior right upper lobe. T here is a 4 mm nodule with surrounding groundglass within the anterior left lower lobe (series 4, augusto ge 73). There are few additional similar-appearing tiny nodular groundglass opacities within the el cent left lower lobe. There is mild central bronchial wall thickening. There is no acute finding involving the upper abdome n. There is suspected hepatomegaly. There is calcified atherosclerotic plaque at the origins of the s uperior mesenteric artery and bilateral renal arteries. There are degenerative changes involving the spine. There is no acute or suspicious osseous lesion. IMPRESSION: 1. No evidence of pulmonary embolism. 2. New 8 mm spiculated nodule within the right upper lobe, the morphology of which is concerning for neoplasm. This may be too small to characterize with PET/CT. Short-term follow-up with a CT in 3 [facility] is recommended. There is also an indeterminant 4 mm nodule with adjacent tiny groundglass nodular opacities within the left lower lobe, the appearance of which favors a postinfectious or postinflamma tory etiology. Attention the time of follow-up is recommended. 3. Pulmonary emphysema and central bronchial wall thickening likely due to the sequela of bronchitis. 4. Stable prominent hilar lymph nodes. These may be reactive in etiology. 5. Slight nodular extension of the posterior aspect of the right thyroid lobe. There is no convincing nodule in this location on the contrast-enhanced study performed 12/09/2020. Thyroid sonography can be performed to confirm benignity if clinically indicated. Electronically signed by: Candy Cano MD (06/05/2021 12:51 PM) [id number]
[2021-06-05] MEDS ORDERED: DOXYCYCLINE HYCLATE 100 MG in IV DEXTROSE 5% 100 ML IV ONE (13:00)
[2021-06-05] MEDS ORDERED: ALBUTEROL SULFATE 8GM INHALER. INH ONE (13:00)
[2021-06-05] MEDS ORDERED: DOXYCYCLINE HYCLATE 100 MG VIAL IV ONE (14:31)
[2021-06-05] MEDS ORDERED: IV DEXTROSE 5% 100 ML IV ONE (14:31)
[2021-06-05 19:51] VITALS: BP 130/69
[2021-06-05] MEDS: IV NORMAL SALINE 1,000ML 1,000 ML IV SCH (20:23)
[2021-06-05] MEDS: DOXYCYCLINE HYCLATE 100 MG TABLET PO SCH (21:00)
[2021-06-05 23:00] VITALS: BP 119/68
[2021-06-06] MEDS: MORPHINE SULFATE 4 MG/ML DISP.SYRIN. IV PRN (00:08)
[2021-06-06] MEDS: IV NORMAL SALINE 1,000ML 1,000 ML IV SCH (01:49)
[2021-06-06 05:34] VITALS: BP 142/80
[2021-06-06] MEDS ORDERED: ACETAMINOPHEN 325 MG TABLET PO PRN (07:30)
[2021-06-06] MEDS: DOXYCYCLINE HYCLATE 100 MG TABLET PO SCH ×2 (07:54→20:18)
[2021-06-06] MEDS ORDERED: DEXAMETHASONE SOD PHOS 10 MG/ML VIAL. IV ONE (09:00)
[2021-06-06 10:34] VITALS: BP 163/82
[2021-06-06] MEDS: LACTOBACILLUS RHAMNOSUS GG 1 CAPSULE. PO SCH ×2 (12:01→20:17)
[2021-06-06] MEDS: NICOTINE 21MG PATCH. TD SCH (12:02)
[2021-06-06 15:12] VITALS: BP 159/93
[2021-06-06] MEDS ORDERED: methylPREDNISolone SOD SUCC PF 125 MG/2 ML VIAL. IV ONE (17:00)
[2021-06-06] MEDS ORDERED: ALBUTEROL SULFATE 2.5 MG/3 ML NEBU. NEB PRN (17:00)
[2021-06-06] MEDS: KETOROLAC 30 MG/ML VIAL. IVP PRN (18:08)
--- NOTE | 2021-06-06 18:12 | HP ---
HISTORY OF PRESENT ILLNESS: The patient is a 55-year-old female patient who yet again came to the Emergency Room with a complaint of shortness of breath, chest tightness, and wheezing, also cough and fever. She stated that she should be on 2 liters of oxygen via nasal cannula at home. However, the company still has not delivered her oxygen tubing. Apparently, she has been getting her breathing treatment at home, but it has not helped her much. She also reported some lower back pain from coughing. She was satting at 88% on room air when she arrived to the Emergency Room. Denied any nausea or vomiting. Denied any chest pain. She was extensively investigated in the Emergency Room, found to have mild leukocytosis. Her chemistry was unremarkable. Lactic acid was only 1.2. Her D-dimer was 2.[address] angio of the chest, which basically showed no evidence of pulmonary embolism. She has new 8 mm spiculated nodule within the right upper lobe, the morphology of which is concerning for neoplasm. This may be too small to characterize with that CT, short-term followup with a CT in 3 months is recommended. There is also an indeterminate 4 mm nodule with adjacent tiny ground glass nodular opacities within the left lower lobe, the appearance of which favors postinfectious or postinflammatory as pulmonary emphysema and central bronchial wall thickening, likely due to sequela of bronchitis, stable prominent hilar lymph nodes, this may be reactive in etiology. She has slight nodular extension in the posterior aspect of the right thyroid lobe. There is no convincing node during this location on the contrast enhanced study performed on 12/09/2020. Thyroid sonography may be performed to confirm clinically indicated. The patient was admitted with a COPD exacerbation with acute on chronic hypoxic respiratory failure, probably underlying bronchitis. PAST MEDICAL HISTORY: Significant for chronic obstructive pulmonary disease, hypertension, hyperlipidemia, TIA, and history of obstructive sleep apnea. PAST SURGICAL HISTORY: Significant for and tonsillectomy. ALLERGIES: SHE IS ALLERGIC TO CIPRO, PENICILLIN AND KEFLEX. MEDICATIONS: She is currently on the following medications: She is on cetirizine 10 mg once a day, albuterol sulfate or ProAir 1 puff every 6 hours, clonidine 0.2 mg twice a day, amlodipine besylate 5 mg, takes 2 tablets once a day, meloxicam 15 mg once a day, tramadol 50 mg once a day, sertraline 25 mg daily, Trintellix 20 mg once a day, alprazolam 0.5 mg at bedtime, hydrochlorothiazide 25 mg once a day, Breo Ellipta 100/25 one puff once a day, Flonase 2 sprays to each nostril once a day, omeprazole 20 mg once a day, and Crestor 20 mg at bedtime. FAMILY HISTORY: She has 1 brother who is younger and healthy. Father because of dementia and myocardial infarction. Mother secondary to myocardial infarction at age of 69. SOCIAL HISTORY: She is , has 1 daughter. She smokes a pack a day. She does not drink alcohol or recreational drugs. She works at [employer]. REVIEW OF SYSTEMS: As per history of present illness. PHYSICAL EXAMINATION: GENERAL: On arrival to the Emergency Room, she was tachypneic, but there was no pallor, jaundice, cyanosis or thyromegaly. No jugular venous distention. No lower limb edema. VITAL SIGNS: Her heart rate was 93, blood pressure 149/89, temperature was 99.4, respiratory rate 26, and oxygen saturation was 89% on room air, that improved to 98% on 2 liters of oxygen. HEAD, EYES, EARS, NOSE, AND THROAT: Normocephalic, atraumatic. NECK: Supple. HEART: Showed normal first and second heart sounds, no gallop or murmur. CHEST: Shows central trachea, equally reduced expansion, reduced air entry, vesicular breath sounds with bilateral scattered rhonchi. I could not appreciate any crepitation. ABDOMEN: Slightly distended, soft, nontender. NEUROLOGIC: She was grossly intact. LABORATORY DATA: On arrival to the Emergency Room showed a white cell count of 12,600, hemoglobin 15.4, hematocrit 45, MCV 94, platelet count of 176,000 with normal manual differential. Her chemistry showed a serum sodium 143, potassium 3.6, chloride 104, bicarbonate 29, anion gap of 10, BUN 13, creatinine 0.6. Estimated GFR was 103 mL per minute. Her glucose was 91. Lactic acid was 1.2, calcium was 8.3, Total bilirubin, AST, ALT, alkaline phosphatase were normal. Total protein was 6.3, albumin was 3.6. Her D-dimer was high at 2.27. Her coronavirus by PCR was negative. Her chest x-ray showed normal heart size, aortic atherosclerotic calcification. There is no evidence of focal airspace consolidation, pleural effusion, pulmonary vasculature is unremarkable, and there are degenerative changes in thoracic spine. CT angio of the chest showed no evidence of pulmonary embolism, new 8 mm spiculated nodule within the right upper lobe, the morphology of which is concerning for neoplasm. This may be too small to characterize with PET CT scan. Short term followup with a CT scan in 3 months' time is recommended. There is also an indeterminate 4 mm nodule adjacent tiny ground glass nodular opacities within the left lower lobe, the appearance of which favors a postinfectious or postinflammatory etiology followup is recommended. Pulmonary emphysema and central bronchial wall thickening, likely due to sequela of bronchitis. She has stable prominent hilar lymph nodes, these may be reactive in etiology. She has slight to moderate extension of the posterior aspect of right thyroid lobe, but there is no convincing nodule in this location and the contrast enhanced study performed on 12/09/2020. ASSESSMENT AND PLAN: The patient was admitted with acute on chronic hypoxic respiratory failure, chronic obstructive pulmonary disease exacerbation. She has multitude of other medical problems including hypertension, hyperlipidemia, depression and TIA. SMITH/BERNARD/JOSE DR: Mi TID: [id number]
[2021-06-06 19:47] VITALS: BP 159/97
[2021-06-06] MEDS: methylPREDNISolone SOD SUCC PF 40 MG/ML VIAL. IV SCH (20:17)
[2021-06-06] MEDS: cloNIDine HCL 0.2 MG TABLET PO SCH (20:18)
[2021-06-06] MEDS: MONTELUKAST 10 MG TABLET. PO SCH (20:18)
[2021-06-06] MEDS: ALPRAZolam 0.5 MG TABLET PO SCH (20:18)
[2021-06-06] MEDS: IPRATRPIUM/ALBUTEROL 0.5/2.5MG 3 ML NEBU. NEB SCH (20:42)
[2021-06-06] MEDS: BUDESONIDE 0.5 MG/2 ML NEBU NEB SCH (20:42)
[2021-06-06 23:53] VITALS: BP 128/81
--- NOTE | 2021-06-07 00:18 | PN ---
DATE: 06/06/2021 SUBJECTIVE: The patient is sitting at the edge of the bed, continued to complain of shortness of breath, chest tightness and wheezing. Her oxygen saturation was only 92% on 2 liters of oxygen. She continued to have complaints of back pain, but denied any chest pain. PHYSICAL EXAMINATION: GENERAL: When I examined her this afternoon, she was somewhat tachypneic. There was no pallor, jaundice, cyanosis or thyromegaly. No jugular venous distention. No lower limb edema. VITAL SIGNS: Her heart rate was 82, blood pressure is 159/93, temperature was 98.5, respiratory rate 20, and oxygen saturation was 98% on 2 liters of oxygen. HEAD, EYES, EARS, NOSE, AND THROAT: Normocephalic, atraumatic. NECK: Supple. HEART: Normal first and second heart sounds. No gallop, rub or murmur. CHEST: Shows central trachea, equally reduced expansion, reduced air entry, vesicular breath sounds. The patient continued to have diffuse wheezing, scattered bilaterally. I could not appreciate any crepitation. ABDOMEN: Slightly distended, soft, nontender. NEUROLOGIC: She was grossly intact. ASSESSMENT: 1. Acute on chronic hypoxic respiratory failure. 2. Chronic obstructive pulmonary disease exacerbation. 3. Hypertension. 4. Hyperlipidemia. 5. Depression. PLAN: My plan is to be more aggressive with her treatment. Therefore, she was started on Solu-Medrol 125 mg once and then Solu-Medrol 40 mg 3 times a day, albuterol and Atrovent 3 mL 4 times a day and Ketorolac 30 mg intravenously every 6 hours for pain. We added also nicotine patch and doxycycline 100 mg twice a day as well as Crestor for hyperlipidemia and Protonix for gastroesophageal reflux disease. VIVIAN DR: Mi TID: [id number]
[2021-06-07] MEDS: KETOROLAC 30 MG/ML VIAL. IVP PRN ×2 (03:07→13:40)
[2021-06-07] MEDS: methylPREDNISolone SOD SUCC PF 40 MG/ML VIAL. IV SCH ×3 (05:53→21:16)
[2021-06-07 06:20] LABS: HEMATOCRIT 41.2 % (36.0-47.0); HEMOGLOBIN 13.8 g/dL (12.0-15.5); RED BLOOD COUNT 4.31 x10^6/uL (3.50-5.40); RED CELL DISTRIBUTION WIDTH 13.5 % (11.5-14.5); WHITE BLOOD COUNT 9.4 x10^3/uL (4.0-11.0)
[2021-06-07 06:27] VITALS: BP 154/90
[2021-06-07 06:28] LABS: ALBUMIN 3.2 g/dL (3.4-5.0); ALBUMIN/GLOBULIN RATIO 1.1 (1.0-1.7); CALCIUM 8.6 mg/dL (8.5-10.1); CREATININE 0.5 mg/dL (0.6-1.0); GFR 127.6; POTASSIUM 4.4 mmol/L (3.5-5.1); TOTAL BILIRUBIN 0.4 mg/dL (0.2-1.0); TOTAL PROTEIN 6.2 g/dL (6.4-8.2)
[2021-06-07] MEDS: IPRATRPIUM/ALBUTEROL 0.5/2.5MG 3 ML NEBU. NEB SCH ×4 (06:47→19:13)
[2021-06-07] MEDS: LACTOBACILLUS RHAMNOSUS GG 1 CAPSULE. PO SCH ×2 (07:50→21:15)
[2021-06-07] MEDS: DOXYCYCLINE HYCLATE 100 MG TABLET PO SCH ×2 (07:50→21:15)
[2021-06-07] MEDS: CETIRIZINE HCL 10 MG TABLET PO SCH (07:50)
[2021-06-07] MEDS: NICOTINE 21MG PATCH. TD SCH (07:50)
[2021-06-07] MEDS: PANTOPRAZOLE 40 MG TABLET. PO SCH (07:50)
[2021-06-07] MEDS: ATORVASTATIN CALCIUM 20 MG TABLET PO SCH (07:51)
[2021-06-07] MEDS: SERTRALINE 25 MG TABLET. PO SCH (07:51)
[2021-06-07] MEDS: cloNIDine HCL 0.2 MG TABLET PO SCH ×2 (07:51→21:16)
[2021-06-07] MEDS: hydroCHLOROthiazide 25 MG TABLET. PO SCH (07:51)
[2021-06-07] MEDS: amLODIPine BESYLATE 10 MG TABLET PO SCH (07:52)
[2021-06-07] MEDS: traMADol 50 MG TABLET PO SCH (07:53)
[2021-06-07] MEDS: FLUTICASONE 50MCG/NASAL SPRAY 16GM BOTTLE. NS SCH (07:53)
--- NOTE | 2021-06-07 08:45 | PN ---
DATE: 06/07/2021 ATTENDING PHYSICIAN: Dr. aCmilo. SUBJECTIVE: Less dyspneic, still coughing and wheezing. OBJECTIVE FINDINGS: VITAL SIGNS: Blood pressure this morning is 154/90, pulse 76 and regular. She is afebrile. Oxygen saturation 96% on 2 liters by nasal cannula. HEENT: Head is without trauma. Pupils are reactive. Sclerae nonicteric. The oropharynx is clear. NECK: Supple, no bruits. LUNGS: Otherwise clear with minimal wheezing. CARDIOVASCULAR: Showed regular heart tones. No gallops. ABDOMEN: Soft. EXTREMITIES: Without edema. NEUROLOGIC: Function focally intact. Speech is fluent. LABORATORY DATA: CBC and chemistry panel unremarkable. ASSESSMENT: 1. A 55-year-old female with acute on chronic respiratory failure. 2. Hypoxemia. 3. Exacerbation of chronic obstructive pulmonary disease. 4. Tobacco addiction. 5. Hypertension. 6. Underlying depression with anxiety. 7. Hyperlipidemia. PLAN: 1. Continue Solu-Medrol. 2. Continue Atrovent. 3. Diet as tolerated. 4. Tentative discharge plans for tomorrow. 5. Strong encouragement to quit smoking or to use e-cigarettes as an alternative. NIGEL/SHAWNA DR: NIGEL/benjie TID: [id number]
[2021-06-07] MEDS ORDERED: NON FORMULARY ITEM (Vortioxetine Hydrobromide (Trintellix) 1 TAB) PO SCH (09:00)
[2021-06-07 10:37] VITALS: BP 114/77
[2021-06-07] MEDS: BUDESONIDE 0.5 MG/2 ML NEBU NEB SCH ×2 (11:19→19:13)
[2021-06-07 14:58] VITALS: BP 112/65
[2021-06-07 20:14] VITALS: BP 124/72
[2021-06-07] MEDS: MONTELUKAST 10 MG TABLET. PO SCH (21:16)
[2021-06-07] MEDS: ALPRAZolam 0.5 MG TABLET PO SCH (21:16)
[2021-06-07 22:52] VITALS: BP 131/86
[2021-06-08] MEDS: IPRATRPIUM/ALBUTEROL 0.5/2.5MG 3 ML NEBU. NEB SCH (05:00)
[2021-06-08 05:19] VITALS: BP 132/83
[2021-06-08] MEDS: methylPREDNISolone SOD SUCC PF 40 MG/ML VIAL. IV SCH (05:37)
[2021-06-08] MEDS: CETIRIZINE HCL 10 MG TABLET PO SCH (08:09)
[2021-06-08] MEDS: LACTOBACILLUS RHAMNOSUS GG 1 CAPSULE. PO SCH (08:09)
[2021-06-08] MEDS: ATORVASTATIN CALCIUM 20 MG TABLET PO SCH (08:09)
[2021-06-08] MEDS: DOXYCYCLINE HYCLATE 100 MG TABLET PO SCH (08:09)
[2021-06-08] MEDS: traMADol 50 MG TABLET PO SCH (08:09)
[2021-06-08] MEDS: PANTOPRAZOLE 40 MG TABLET. PO SCH (08:09)
[2021-06-08 08:10] VITALS: BP 132/83
[2021-06-08] MEDS: amLODIPine BESYLATE 10 MG TABLET PO SCH (08:10)
[2021-06-08] MEDS: cloNIDine HCL 0.2 MG TABLET PO SCH (08:10)
[2021-06-08] MEDS: SERTRALINE 25 MG TABLET. PO SCH (08:10)
[2021-06-08] MEDS: hydroCHLOROthiazide 25 MG TABLET. PO SCH (08:10)
[2021-06-08] MEDS: NICOTINE 21MG PATCH. TD SCH (08:11)
[2021-06-08] MEDS: FLUTICASONE 50MCG/NASAL SPRAY 16GM BOTTLE. NS SCH (08:12)
--- NOTE | 2021-06-08 16:13 | DS ---
DATE OF DISCHARGE: 06/08/2021 ATTENDING PHYSICIAN: Dr. Camilo. FINAL DISCHARGE DIAGNOSES: 1. Acute on chronic respiratory failure. 2. Exacerbation of chronic obstructive pulmonary disease. 3. Early bronchitis. 4. Tobacco addiction. 5. Underlying depression. 6. Hypertension. 7. Hyperlipidemia. 8. Hypoxemia, resolved. HISTORY AND PHYSICAL: This is a 55-year-old female. She is a smoker. She had increasing shortness of breath, wheezing, congestion. She was admitted for further treatment of exacerbation of chronic obstructive pulmonary disease. PHYSICAL EXAMINATION: Please see the dictated note. PERTINENT LABORATORY AND X-RAY STUDIES: Admission hemoglobin was 15.4 g/dL, white count 9400. Electrolytes within normal range. Potassium 3.6 was replaced up to 4.4, creatinine is 0.5 mg percent. Transaminases are normal. IMAGING STUDIES: CT of the chest showed no acute infiltrates; however, she does have a known 8 mm nodule with spiculation in the right upper lung field. The report said this is suspicious for malignancy, but because of the size, it would not show up on a PET scan right away. Their recommendation is a followup CT scan in 6 months. COURSE IN THE HOSPITAL: The patient was admitted. She was given nebulizer therapy, empiric antibiotics, and steroids with improvement. Wheezing subsided. By the fourth hospital day, her vital signs were stable. Lungs were clear. I recommended 40 mg of prednisone daily for 7 more days and stop. She does not need to taper. Other home meds are unchanged. I also recommended that she get a primary care establishment and put on the calender to get a followup CT scan in 6 months. Whether or not she will get coverage and she can afford that remains to be seen. She understands. She was then discharged from our hospital in stable condition. Her other home meds include albuterol, amlodipine, Zyrtec, clonidine, fluticasone, hydrochlorothiazide, omeprazole, Zoloft, Crestor, tramadol, and Trintellix. I have asked her to stop the meloxicam. The patient was then discharged from our hospital in stable condition with explicit drug and followup care. LEROY/JOSE DR: Ila TID: [id number]
== END 2021-06-08 09:25 | disposition home or self-care (01) | DRG 189 ==
LOC: ER 09:38 → 1 SOUTH 20:01
PROVIDERS: ADMIT Internal Medicine; ATTEND Internal Medicine
DX: J96.21 Acute and chronic respiratory failure with hypoxia (principal); D72.829 Elevated white blood cell count, unspecified; E78.00 Pure hypercholesterolemia, unspecified; E78.5 Hyperlipidemia, unspecified; F17.210 Nicotine dependence, cigarettes, uncomplicated; F41.8 Other specified anxiety disorders; I10 Essential (primary) hypertension; Z82.49 Family history of ischemic heart disease and other diseases of the circulatory system; Z86.73 Personal history of transient ischemic attack (TIA), and cerebral infarction without residual deficits; G47.33 Obstructive sleep apnea (adult) (pediatric); Z20.822 Contact with and (suspected) exposure to COVID-19; J43.9 Emphysema, unspecified; K21.9 Gastro-esophageal reflux disease without esophagitis
CPT/HCPCS: 36415; 71045; 71275; 80053; 83605; 84484; 85025; 85027; 85379; 93005; 94640; 96374; 96375; J1100; J1885; J2270; J2405; J2920; J2930; J3490; Q9967; U0003; 94664; 99285-25; J7030

== ENCOUNTER 2021-12-08 17:10 | Observation (INO) | payer OTHER ==
[~2021-12-08] VITALS: Ht 160 cm; Wt 68.4 kg
[~2021-12-08 17:10] MED LIST changes: -CYCL-331 PO; +CYCL10TA19 PO; +DICY20TA PO; -DICY20TA3 PO; -DULO60CA6 PO; +DULO60CA7 PO; -LURA40TA PO; +LURA40TA2 PO; +POTA-112 PO; -POTA10TA5 PO
--- NOTE | 2021-12-08 17:50 | RAD ---
INDICATION: Reason: sob, cough / Spl. Instructions: / History: COMPARISON: June 05, 2021 FINDINGS: Single view of chest obtained. Hyperexpansion the lungs. There is some disorganization of the pulmonary markings. Mild haziness at lung bases IMPRESSION: * Hyperexpanded lungs with disorganized markings bilaterally which can be seen with emphysema. * Mild haziness at lung bases. A portion of this is likely secondary to overlap of structures but ibrahim perimposed atelectasis or infiltrate may be present given this finding. Electronically signed by: Alex Nelson MD (12/08/2021 5:48 PM) [id number]
[2021-12-08 18:16] LABS: BASO % 0 % (0-3); EOS # 0.1 x10^3/uL (0.0-0.7); EOS % 2 % (0-3); LYMPH # 2.9 x10^3/uL (1.0-4.8); LYMPH % 31 % (24-48); MEAN CORPUSCULAR HEMOGLOBIN 32 pg (25-35); MEAN CORPUSCULAR HGB CONC 35 g/dL (31-37); MEAN CORPUSCULAR VOLUME 91 fL (79-100); MONO # 0.8 x10^3/uL (0.0-1.1); MONO % 9 % (0-9); NEUT # 5.7 x10^3uL (1.8-7.7); NEUT % 59 % (31-73); PLATELET COUNT 209 x10^3/uL (140-400); RED BLOOD COUNT 4.39 x10^6/uL (3.50-5.40); RED CELL DISTRIBUTION WIDTH 13.5 % (11.5-14.5); WHITE BLOOD COUNT 9.6 x10^3/uL (4.0-11.0)
--- NOTE | 2021-12-08 18:18 | PHYS DOC ---
Past History Past Medical History: Bronchitis, COPD, Depression, High Cholesterol, Hypertension, Other Additional Past Medical Histor: spinal stenosis (TERI CANNON) Past Surgical History: , Tonsillectomy Additional Past Surgical Histo: both surgeries over 15 years ago (TERI CANNON) Smoking: Cigarettes, Less than 1pk/day Alcohol Use: Occasionally Drug Use: None (TERI CANNON) General Adult EDM: Chief Complaint: SHORTNESS OF BREATH HPI: HPI: Patient is a 56 year old female with history of COPD who presents with cough, congestion increased wheezing and shortness of breath that began a couple days ago. Patient's primary care provider Racheal Stafford NP called ahead to the department informing us that she would be on her way. Per Racheal, patient was saturating 87-92% on room air at home. She was seen in the office, and Racheal reports patient seems significantly decompensated from her baseline. Racheal also states patient has an 8 mm nodule in one of her lungs, for which which she has had follow-up at [facility]. Patient's last hospitalization for COPD exacerbation was in June [address] [facility]. Patient states her roommate had COVID-19 two weeks ago. (TERI CANNON) Review of Systems: Review of Systems: Constitutional: Denies fever, chills or generalized weakness Eyes: Denies change in visual acuity, visual field deficits or discharge HENT: Denies ear pain, nasal congestion or sore throat Respiratory: See HPI Cardiovascular: Denies chest pain, palpitations or edema GI: Denies abdominal pain, nausea, vomiting, bloody stools or diarrhea : Denies dysuria or hematuria Musculoskeletal: Denies back pain or joint pain Integument: Denies rash or other skin lesion Neurologic: Denies headache, focal weakness or sensory changes (TERI CANNON) Allergies: Allergies: Allergies Coded Allergies Type Severity Reaction Last Updated Verified Penicillins Allergy Intermediate 11/08/20 No [id number] Antimigraine Agents Allergy Intermediate 11/08/20 Yes cephalexin Allergy Intermediate 11/08/20 No ciprofloxacin Allergy Intermediate Unknown 11/08/20 Yes (TERI CANNON) Physical Exam: PE: Constitutional: Well developed, well nourished, patient is short of breath and has increased work of breathing. HENT: Normocephalic, atraumatic, bilateral external ears normal, nose normal. Eyes: EOMI, conjunctiva normal, no discharge. Neck: Normal range of motion, no stridor. Cardiovascular: Heart rate regular rhythm, no murmur. Lungs & Thorax: Expiratory wheezing heard throughout, decreased breath sounds in the bases. Skin: Warm, dry, no erythema, no rash. Extremities: No tenderness, no cyanosis, no clubbing, ROM intact, no edema. Neurologic: Alert and oriented x4, no focal deficits noted. (TERI CANNON) Current Patient Data: Labs: Laboratory Tests Test 12/08/21 17:50 12/08/21 18:56 White Blood Count 9.6 x10^3/uL (4.0-11.0) Red Blood Count 4.39 x10^6/uL (3.50-5.40) Hemoglobin 14.0 g/dL (12.0-15.5) Hematocrit 40.0 % (36.0-47.0) Mean Corpuscular Volume 91 fL (79-100) Mean Corpuscular Hemoglobin 32 pg (25-35) Mean Corpuscular Hemoglobin Concent 35 g/dL (31-37) Red Cell Distribution Width 13.5 % (11.5-14.5) Platelet Count 209 x10^3/uL (140-400) Neutrophils (%) (Auto) 59 % (31-73) Lymphocytes (%) (Auto) 31 % (24-48) Monocytes (%) (Auto) 9 % (0-9) Eosinophils (%) (Auto) 2 % (0-3) Basophils (%) (Auto) 0 % (0-3) Neutrophils # (Auto) 5.7 x10^3uL (1.8-7.7) Lymphocytes # (Auto) 2.9 x10^3/uL (1.0-4.8) Monocytes # (Auto) 0.8 x10^3/uL (0.0-1.1) Eosinophils # (Auto) 0.1 x10^3/uL (0.0-0.7) Basophils # (Auto) 0.0 x10^3/uL (0.0-0.2) Sodium Level 138 mmol/L (136-145) Potassium Level 3.9 mmol/L (3.5-5.1) Chloride Level 101 mmol/L (98-107) Carbon Dioxide Level 32 mmol/L (21-32) Anion Gap 5 (6-14) Blood Urea Nitrogen 10 mg/dL (7-20) Creatinine 0.8 mg/dL (0.6-1.0) Estimated GFR (Cockcroft-Gault) 73.9 BUN/Creatinine Ratio 13 (6-20) Glucose Level 88 mg/dL (70-99) Calcium Level 8.7 mg/dL (8.5-10.1) Total Bilirubin 0.2 mg/dL (0.2-1.0) Aspartate Amino Transf (AST/SGOT) 12 U/L (15-37) Alanine Aminotransferase (ALT/SGPT) 24 U/L (14-59) Alkaline Phosphatase 88 U/L (46-116) Total Protein 5.9 g/dL (6.4-8.2) Albumin 3.5 g/dL (3.4-5.0) Albumin/Globulin Ratio 1.5 (1.0-1.7) Influenza Type A (Rapid) Negative (NEGATIVE) Influenza Type B (Rapid) Negative (NEGATIVE) SARS-CoV-2 Antigen (Rapid) Negative (NEGATIVE) Urine Collection Type Clean catch Urine Color Yellow Urine Clarity Hazy Urine pH 6.5 Urine Specific [place] 1.025 Urine Protein Neg (NEG-TRACE) Urine Glucose (UA) Neg mg/dL (NEG) Urine Ketones (Stick) Neg mg/dL (NEG) Urine Blood Neg (NEG) Urine Nitrite Neg (NEG) Urine Bilirubin Neg (NEG) Urine Urobilinogen Dipstick 0.2 mg/dL (0.2 mg/dL) Urine Leukocyte Esterase Trace (NEG) Urine RBC 0 /HPF (0-2) Urine WBC 5-10 /HPF (0-4) Urine Squamous Epithelial Cells Many /LPF Urine Bacteria Few /HPF (0-FEW) Vital Signs: Vital Signs Date Time Temp Pulse Resp B/P (MAP) Pulse Ox O2 Delivery O2 Flow Rate FiO2 12/08/21 17:16 98.1 76 20 127/74 (91) 94 Room Air Respiration rate labile while in the department, fluctuates from 18-38+ with oxygen saturation 89-94%. (TERI CANNON) Radiology/Procedures: Radiology/Procedures: PROCEDURE: CHEST AP ONLY INDICATION: Reason: sob, cough / Spl. Instructions: / History: COMPARISON: June 05, 2021 FINDINGS: Single view of chest obtained. Hyperexpansion the lungs. There is some disorganization of the pulmonary markings. Mild haziness at lung bases IMPRESSION: * Hyperexpanded lungs with disorganized markings bilaterally which can be seen with emphysema. * Mild haziness at lung bases. A portion of this is likely secondary to overlap of structures but superimposed atelectasis or infiltrate may be present given this finding. Electronically signed by: Alex Nelson MD (12/08/2021 5:48 PM) [id number] (TERI CANNON) Heart Score: C/O Chest Pain: No (TERI CANNON) Course & Med Decision Making: Course & Med Decision Making Pertinent Labs and Imaging studies reviewed. (See chart for details) Patient is a 56-year-old female with history of COPD who presents from her primary care provider's office with reported cough, congestion, increased wheezing and shortness of breath. Patient's primary care provider did call ahead to the department stating that she appeared decompensated from her baseline. Patient's oxygen saturation remains in the low 90s, occasionally dropping to 89. Her respiration rate is labile ranging anywhere from 18-38 and she has noted increased work of breathing. Dr. Waldron, hospitalist, was contacted for admission, who gladly accepts. He did recommend adding urine drug screen. Dr. Waldron requested Rocephin and azithromycin be started, however patient states she is allergic to cephalosporins. She is unsure of her reaction. Rocephin will be deferred at this time. (TERI CANNON) Dragon Disclaimer: Dragon Disclaimer: This electronic medical record was generated, in whole or in part, using a voice recognition dictation system. (TERI CANNON) Departure Departure: Impression: Primary Impression: COPD exacerbation Additional Impression: CAP (community acquired pneumonia) Qualified Codes: J18.9 - Pneumonia, unspecified organism Disposition: ADMITTED INPATIENT Admitting Physician: Wood Waldron (TERI CANNON) Referrals: SALLY STAFFORD (PCP) Attending Signature Attending Signature I have participated in the care of this patient and I have reviewed and agree with all pertinent clinical information above including history, exam, and recommendations. (CORTNEY TYLER MD) TERI CANNON Dec 08, 2021 18:18 CORTNEY TYLER MD Dec 12, 2021 02:43
[2021-12-08 18:24] LABS: CALCIUM 8.7 mg/dL (8.5-10.1); CREATININE 0.8 mg/dL (0.6-1.0); GFR 73.9; POTASSIUM 3.9 mmol/L (3.5-5.1)
[2021-12-08 18:30] LABS: ALBUMIN 3.5 g/dL (3.4-5.0); ALBUMIN/GLOBULIN RATIO 1.5 (1.0-1.7); INFLUENZA A PATIENT NEGATIVE (NEGATIVE); INFLUENZA B PATIENT NEGATIVE (NEGATIVE); TOTAL BILIRUBIN 0.2 mg/dL (0.2-1.0); TOTAL PROTEIN 5.9 g/dL (6.4-8.2)
[2021-12-08] MEDS ORDERED: NICOTINE 14MG PATCH. TD SCH (18:45)
[2021-12-08] MEDS ORDERED: NICOTINE 14MG PATCH. TD ONE (19:00)
[2021-12-08 19:20] LABS: BACTERIA,URINE FEW /HPF (0-FEW); BILIRUBIN,URINE NEG (NEG); CLARITY,URINE HAZY; COLOR,URINE YELLOW; GLUCOSE,URINE NEG (NEG); NITRITE,URINE NEG (NEG); RBC,URINE 0 /HPF (0-2); SQUAMOUS EPITHELIAL CELL,UR MANY /LPF; UROBILINOGEN,URINE 0.2 mg/dL (0.2 mg/dL)
[2021-12-08] MEDS ORDERED: AZITHROMYCIN 500 MG in IV NORMAL SALINE 250ML 250 ML IV ONE (19:30)
[2021-12-08] MEDS ORDERED: methylPREDNISolone SOD SUCC PF 125 MG/2 ML VIAL. IV ONE (19:30)
[2021-12-08] MEDS ORDERED: IV NORMAL SALINE 250ML 250 ML ONE (19:43)
[2021-12-08] MEDS ORDERED: AZITHROMYCIN 500 MG VIAL. IV ONE (19:43)
[2021-12-08 20:29] LABS: BARBITURATES NEG (NEG); BENZODIAZEPINES NEG (NEG); CANNABINOIDS NEG (NEG); COCAINE NEG (NEG); METHADONE NEG (NEG); OPIATES NEG (NEG); PHENCYCLIDINE NEG (NEG)
[2021-12-08 20:34] LABS: AMPHETAMINE/METHAMPHETAMINE NEG (NEG)
[2021-12-08 21:32] VITALS: BP 107/69
[2021-12-08] MEDS: methylPREDNISolone SOD SUCC PF 125 MG/2 ML VIAL. IV SCH (22:00)
[2021-12-09] MEDS ORDERED: CHOL10004 PO
[2021-12-09] MEDS ORDERED: MELO15TA23 PO
[2021-12-09] MEDS ORDERED: POTA10TA32 PO
[2021-12-09] MEDS ORDERED: PROAIR RESPICL90 MCG IH
[2021-12-09] MEDS ORDERED: ONDA4TAB12 PO
[2021-12-09] MEDS ORDERED: CLON0.5T4 PO
[2021-12-09 05:42] VITALS: BP 109/66
[2021-12-09] MEDS: methylPREDNISolone SOD SUCC PF 125 MG/2 ML VIAL. IV SCH (06:34)
[2021-12-09] MEDS ORDERED: traMADol 50 MG TABLET PO PRN (08:30)
[2021-12-09] MEDS ORDERED: NON FORMULARY ITEM (Albuterol Sulfate (Proair Respiclick) 2 PUFF) IH PRN (08:30)
[2021-12-09] MEDS ORDERED: NON FORMULARY ITEM (Vortioxetine Hydrobromide (Trintellix) 1 TAB) PO SCH (09:00)
[2021-12-09] MEDS ORDERED: NON FORMULARY ITEM (Rosuvastatin Calcium (Crestor) 1 TAB) PO SCH (09:00)
[2021-12-09] MEDS ORDERED: clonazePAM 0.5 MG TABLET PO SCH (09:00)
[2021-12-09] MEDS ORDERED: NON FORMULARY ITEM (Fluticasone Propionate (Flonase Allergy Relief) 2 SPRAYS) NS SCH (09:00)
[2021-12-09] MEDS ORDERED: amLODIPine BESYLATE 5 MG TABLET PO SCH (09:00)
[2021-12-09] MEDS ORDERED: CETIRIZINE HCL 10 MG TABLET PO SCH (09:00)
[2021-12-09] MEDS ORDERED: NON FORMULARY ITEM (Omeprazole 1 CAP) PO SCH (09:00)
[2021-12-09] MEDS ORDERED: cloNIDine HCL 0.2 MG TABLET PO SCH (09:00)
--- NOTE | 2021-12-09 09:17 | HP ---
DATE OF SERVICE: 12/09/2021 ADMIT DATE: 12/08/2021 ATTENDING PHYSICIAN: Dr. Waldron. CHIEF COMPLAINT: Shortness of breath. HISTORY OF PRESENT ILLNESS: The patient is a 56-year-old female well known to us from previous admission in 06/2021. She continues to smoke despite our admonitions. She has increasing shortness of breath, congestion, increasing respiratory rate. Oxygen saturation maintained, however. Her chest x-ray and workup in the ED was fairly unremarkable. Chest x-ray showed COPD changes. There is an 8 mm nodule in one of the lung. This will be followed up as an outpatient. She was hospitalized here with an exacerbation of COPD in 06/2021. Solu-Medrol was administered along with antibiotics. I reviewed her chest x-ray. She was admitted overnight for observation and treatment of exacerbation of chronic obstructive pulmonary disease. PAST MEDICAL HISTORY: Significant for chronic bronchitis, COPD, major depression, hyperlipidemia, hypertension and spinal stenosis. PAST SURGICAL HISTORY: Include and tonsillectomy. SOCIAL HISTORY: Smoking history, a pack a day cigarette. Alcohol, socially. No other excess or recreational drug use. ALLERGIES: SHE HAS MULTIPLE ALLERGIES INCLUDING PENICILLIN, CIPRO. She says cephalexin, but she did receive a dose of Rocephin last night. SHE ALSO IS ALLERGIC TO TRIPTAN, EXACT REACTION IS UNCLEAR. I do not believe these are true allergies regarding the Keflex. FAMILY HISTORY: Noncontributory. REVIEW OF SYSTEMS: Significant for the congestion. She continues to smoke. She has had her vaccinations. Her COVID status is negative. All other systems reviewed and turned out to be negative. PHYSICAL EXAMINATION: GENERAL: When I saw her, this is a pleasant, middle-aged female. VITAL SIGNS: Her initial vital signs when I saw her showed a blood pressure 109/56. Her oxygen saturation 93% on room air. She was afebrile, pulse is 70 and regular. HEENT: Head is without trauma. Pupils are reactive. Sclerae nonicteric. Oropharynx is clear. NECK: Supple. LUNGS: Good breath sounds. Faint wheezing noted, but otherwise good air movement. CARDIOVASCULAR: Showed regular heart tones. ABDOMEN: Soft. EXTREMITIES: Without edema. NEUROLOGIC FINDINGS: Focally intact. PERTINENT LABORATORY STUDIES: Hemoglobin was 14.0 g/dL with a white count of 9600. Electrolytes, BUN and creatinine all within normal range. Serology negative for coronavirus. Chest x-ray as noted, chronic scar in the bases. No acute infiltrates identified. Flattening of the diaphragms consistent with COPD. ASSESSMENT: 1. A 56-year-old female with acute on chronic respiratory failure. 2. Exacerbation of chronic obstructive pulmonary disease. 3. Continued tobacco addiction. 4. Essential hypertension. PLAN: 1. Observation status. 2. Empiric antibiotics. 3. Empiric corticosteroids. 4. Continue home medications, I am in the process of ascertaining her dosages. LEROY DR: Ila TID: [id number] CC: GENOVEVA Morrison
--- NOTE | 2021-12-09 11:57 | DS ---
DATE OF DISCHARGE: 12/09/2021 ATTENDING PHYSICIAN: Dr. aWldron. FINAL DISCHARGE DIAGNOSES: 1. Acute exacerbation of chronic obstructive pulmonary disease, improved. 2. Continued tobacco use. 3. History of chronic bronchitis. 4. Hyperlipidemia. 5. Essential hypertension. 6. Acute on chronic respiratory failure. HISTORY AND PHYSICAL: The patient is 56, continues to smoke despite numerous admonition from her physicians and providers. She was here 6 months ago with a similar episode. Her chest x-ray as part of the workup showed no acute infiltrate. COPD changes. Her oxygen saturations were marginal by the time I saw her the next morning, she had adequate saturations on room air. She was feeling better and moving air. PHYSICAL EXAMINATION: Please see my dictated note. PERTINENT LABORATORY AND X-RAY STUDIES: CBC, chemistry panel were all within normal range. Chest x-ray showed COPD changes, no acute infiltrates, chronic scarring the bases. Her coronavirus serology, rapid and PCR were both negative. She has been vaccinated. COURSE IN THE HOSPITAL: She was admitted. She was started on empiric antibiotics and steroids. She did improve by the time I saw her, the next morning. Her lungs were clear. She was feeling better. She did not need to be in the hospital, she did not require supplemental oxygen. Her room air saturations are quite adequate. Therefore, I sent her home with a script for Zithromax 500 mg p.o. daily for 7 days, prednisone 40 mg p.o. daily for 7 days and stop and continuation of her home meds including the following: She should continue her albuterol inhaler, amlodipine, Zyrtec, cholecalciferol, clonazepam p.r.n., clonidine orally, hydrochlorothiazide, omeprazole, ondansetron p.r.n., potassium supplementation, Crestor, tramadol p.r.n. and Trintellix, dose unchanged. For now, I have asked her to stop the meloxicam due to the potential of bronchoconstriction effects of the nonsteroidal inflammatory drugs. Strong encouragement to quit smoking, whether or not she will quit remains to be seen. She was discharged then from our hospital in stable condition with explicit drug and followup care regarding the CT scan and pulmonary nodule that has to be done as an outpatient. NIGEL/JOSE/HERBERTH DR: NIGEL/benjie TID: [id number] CC: GENOVEVA Morrison
== END 2021-12-09 10:00 | disposition home or self-care (01) ==
LOC: ER 17:10 → 1 SOUTH 19:32 → INTOOBSV 19:32
PROVIDERS: ADMIT Hospitalist; ATTEND Hospitalist
DX: J96.20 Acute and chronic respiratory failure, unspecified whether with hypoxia or hypercapnia (principal); Z20.822 Contact with and (suspected) exposure to COVID-19; J44.1 Chronic obstructive pulmonary disease with (acute) exacerbation; J44.0 Chronic obstructive pulmonary disease with (acute) lower respiratory infection; J18.9 Pneumonia, unspecified organism; E78.00 Pure hypercholesterolemia, unspecified; I10 Essential (primary) hypertension; E78.5 Hyperlipidemia, unspecified; F32.9 Major depressive disorder, single episode, unspecified; F17.210 Nicotine dependence, cigarettes, uncomplicated; Z79.899 Other long term (current) drug therapy; Z98.890 Other specified postprocedural states; Z90.49 Acquired absence of other specified parts of digestive tract; Z98.891 History of uterine scar from previous surgery
CPT/HCPCS: 36415; 71045; 80053; 80307; 81001; 85025; 87077; 87086; 87186; 87426; 87428; 96365; 96366; 96375; 96376; 99284; G0378; J0456; J2930; J7050; U0003; G0379; 99285-25

== ENCOUNTER → 2021-12-29 | Outpatient (CLI) | payer OTHER ==
[2021-12-09 05:42] VITALS: BP 109/66
[~2021-12-29] MED LIST changes: +CHOL10004 PO; +CLON0.5T4 PO; +IOHEXOL 300 MG/ML 75 ML VIAL. IV ONE; +POTA10TA32 PO; +PROAIR RESPICL90 MCG IH
--- NOTE | 2021-12-29 15:11 | RAD ---
CT THORAX W INDICATION: PREVIOUS ABNORMAL CT -LUNG MASS. XMOKER X 40 YRS+ 1PK/DAY, COPD, ASTHMA, HTN Comparison: 06/05/2021, 12/09/2020. TECHNIQUE: Following the uneventful administration of intravenous contrast, 75 cc Omnipaque 300, axia l CT sections were obtained through the lungs and upper abdomen. Multiplanar reconstructions were obt ained. PQRS compliance statement: One or more of the following individualized dose reduction techniques were utilized for this examinat ion: 1. Automated exposure control 2. Adjustment of the mA and/or kV according to patient size 3. Use of iterative reconstruction technique FINDINGS: Lungs and Airways: Right upper lobe 6 mm nodule previously measured 8 mm (series 4 image 18). Lingula r and middle lobe subsegmental atelectasis. Centrilobular emphysema. No abnormality of the central ai rways. Pleura: The pleural spaces are normal. Heart and Mediastinum: The visualized thyroid is stable in size and attenuation. No axillary or supra clavicular lymphadenopathy. No mediastinal, hilar or retrocrural lymphadenopathy. Normal cardiac size . Coronary artery atherosclerotic disease. Atherosclerosis of the thoracic aorta. Abdomen: Limited images through the upper abdomen show no abnormality of the visualized organs. Bones and Soft Tissues: Degenerative changes of the spine. IMPRESSION: 1. Right upper lobe 6 mm nodule previously measured 8 mm, favoring a benign process such as scar or n oncalcified granuloma. Consider additional 12 month follow-up chest CT to confirm long-term stability and/or participation in an annual low dose lung cancer screening, given risk factors. 2. No thoracic lymphadenopathy. Electronically signed by: Kendrick Locke MD (12/29/2021 3:08 PM) [id number]
== END ==
LOC: CT 13:42
PROVIDERS: ATTEND Nurse Practitioner Family
DX: J43.2 Centrilobular emphysema (principal); R91.1 Solitary pulmonary nodule; I70.0 Atherosclerosis of aorta; J98.11 Atelectasis
CPT/HCPCS: 71260; Q9967